=== PATIENT | female | born 1970 | race Caucasian/White ===

== ENCOUNTER → 2016-12-25 | Outpatient (CLI) | payer OTHER ==
--- NOTE | 2016-12-25 23:11 | MR ---
EXAMINATION TYPE: MR lumbar spine wo/w con DATE OF EXAM: 12/25/2016 5:34 PM COMPARISON: 12/30/2014 Contrast: 18 mL MultiHance HISTORY: Back pain TECHNIQUE: T1 and T2 axial and sagittal, postcontrast T1 sagittal and axial images of the lumbar spi ne are submitted. FINDINGS: There is no abnormal signal seen within the visualized spinal cord or paraspinal soft tissu es. Right upper pole renal cyst is identified. At T11-T12 there is moderate degenerative disc disease and sagittal disc bulging. No spinal cord cont act. Axial images do not include this region. This appears slightly progressed from the previous MRI thoracic spine dated 03/04/2015 At L1-2 there is no disc herniation, canal stenosis, or foraminal encroachment. At L2-3 there is degenerative disc disease and facet arthropathy. No foraminal encroachment. Annular tear now noted. No Canal stenosis. At L3-4 there is mild degenerative disc disease. There is facet arthropathy with no foraminal encroac hment or canal stenosis. At L4-5 there is progressive changes of facet arthropathy. There is now anterolisthesis grade 1 of L4 on L5 with mild bilateral foraminal encroachment. No Canal stenosis. At L5-S1 there is degenerative disc disease with annular tear no focal herniation. Facet arthropathy seen. Neural foramina patent. Previously noted synovial cyst on the right no longer identified. IMPRESSION: 1. Mild progression of degenerative disc disease and multilevel facet arthropathy with a grade 1 ante rolisthesis of L4 on L5 measuring approximately 3 to 4 mm. This results in mild bilateral foraminal e ncroachment. 2. Annular tear at L2-3 and L5-S1 with no focal herniation or canal stenosis
== END | disposition home or self-care (01) ==
LOC: RADMRIMAIN 16:52
PROVIDERS: ATTEND Psychiatry & Neurology Neurology
DX: M43.16 Spondylolisthesis, lumbar region (principal); M51.37 Other intervertebral disc degeneration, lumbosacral region; M46.96 Unspecified inflammatory spondylopathy, lumbar region
CPT/HCPCS: 72158; A9577

== ENCOUNTER → 2017-04-10 | Outpatient (CLI) | payer OTHER ==
--- NOTE | 2017-04-10 23:21 | MR ---
EXAMINATION TYPE: MR cervical spine wo con DATE OF EXAM: 04/10/2017 COMPARISON: 03/04/2015 HISTORY: Burning in neck to shoulders TECHNIQUE: Multiplanar, multisequence images of the cervical spine were acquired. The cervical vertebra show some straightening. There is some degenerative disc space narrowing at C5- 6. There is anterior and posterior disc herniation at C5-6 with some encroachment on the spinal canal . The canal measures 9 mm. There is developmentally large spinal canal. Brainstem appears normal. Cer vical spinal cord has normal signal pattern. There is no evidence of edema. Posterior elements are in tact. IMPRESSION: There is spondylosis at C5-6 with a posterior central and left-sided cervical disc herniation. No sig nificant narrowing of the spinal canal. There is overall no adverse change compared to last exam of .
== END | disposition home or self-care (01) ==
LOC: RADMRIMAIN 17:37
PROVIDERS: ATTEND Neurological Surgery
DX: M50.022 Cervical disc disorder at C5-C6 level with myelopathy (principal); M47.12 Other spondylosis with myelopathy, cervical region
CPT/HCPCS: 72141

== ENCOUNTER → 2018-04-09 | Outpatient (CLI) | payer OTHER ==
[2018-04-09 11:46] LABS: Appearance,Urine Clear (Clear); Bilirubin,Urine Negative (Negative); Blood,Urine Negative (Negative); Color,Urine Light Yellow; Glucose,Urine (UA) Negative (Negative); HCT 40.8 % (34.0-46.0); HGB 13.3 gm/dL (11.4-16.0); Ketones,Urine Negative (Negative); Leukocyte Esterase,Urine Negative (Negative); MCH 28.7 pg (25.0-35.0); MCHC 32.5 g/dL (31.0-37.0); MCV 88.2 fL (80.0-100.0); Mean Platelet Volume 6.6; Nitrite,Urine Negative (Negative); Platelet Count 341 k/uL (150-450); Protein,Urine Negative (Negative); RBC 4.63 m/uL (3.80-5.40); RDW 13.1 % (11.5-15.5); Specific Gravity,Urine 1.008 (1.001-1.035); Urobilinogen,Urine <2.0 mg/dL (<2.0); WBC 11.7 k/uL (3.8-10.6)
[2018-04-09 12:08] LABS: ALT 34 U/L (9-52); AST 24 U/L (14-36); Alkaline Phosphatase 71 U/L (38-126); Anion Gap 13 mmol/L; Blood Urea Nitrogen 12 mg/dL (7-17); C Reactive Protein 5.1 mg/L (<10.0); Calcium 9.4 mg/dL (8.4-10.2); Carbon Dioxide 28 mmol/L (22-30); Chloride 103 mmol/L (98-107); Creatine Kinase 61 U/L (30-135); Glucose 74 mg/dL (74-99); Magnesium 1.8 mg/dL (1.6-2.3); Potassium 3.8 mmol/L (3.5-5.1); Sodium 144 mmol/L (137-145); Total Bilirubin 0.2 mg/dL (0.2-1.3); Total Protein 6.8 g/dL (6.3-8.2)
[2018-04-09 13:08] LABS: Erythrocyte Sedimentation Rate 7 mm/hr (0-20)
[2018-04-09 18:22] LABS: Hemoglobin A1C 5.4 % (4.0-6.0)
[2018-04-11 05:39] LABS: Vitamin E (Alpha Tocopherol) 1790 ug/dL (500-1800)
[2018-04-11 05:50] LABS: Vitamin B1 60 ug/L (38-122)
== END | disposition home or self-care (01) ==
LOC: LABWHC1 10:51
PROVIDERS: ATTEND Psychiatry & Neurology Neurology
DX: M79.7 Fibromyalgia (principal); G89.4 Chronic pain syndrome; Z79.899 Other long term (current) drug therapy
CPT/HCPCS: 36415; 80053; 81003; 82306; 82550; 83036; 83519; 83735; 84207; 84425; 84446; 84590; 84591; 84597; 85027; 85652; 86140

== ENCOUNTER → 2018-04-18 | Outpatient (CLI) | payer OTHER ==
--- NOTE | 2018-04-19 00:51 | MR ---
EXAMINATION TYPE: MR lumbar spine wo con DATE OF EXAM: 04/18/2018 COMPARISON: 12/25/2016 HISTORY: Low back pain TECHNIQUE: Multiplanar, multisequence images of the lumbar spine were acquired. Lumbar vertebra have normal alignment. Posterior elements are intact. Disc spaces are fairly normal. The neural foramina are well-maintained. There is no compression fracture. Lumbar nerve roots appear normal. There is no evidence of spinal stenosis. There is no paraspinal mass. There is a 6 mm synovia l cyst on the anterior aspect of the L4-5 facet joint on the right side. There is slight encroachment on the lateral recess. I see no bony destructive process. IMPRESSION: No spinal stenosis or lumbar disc herniation. Small synovial cyst at L4-5 on the right side appears n ew compared to old exam. No spinal stenosis. No fracture.
--- NOTE | 2018-04-19 01:03 | MR ---
MRI CERVICAL SPINE and brain: CLINICAL HISTORY: Neck pain. Headaches. TECHNIQUE: Multiplanar, multisequence imaging of the cervical spine is performed without contrast. COMPARISON: Cervical spine 04/10/2017. Brain 11/29/2011. FINDINGS: The cervical vertebra have fairly normal alignment. There is slight narrowing at C5-6 disc space. There is posterior disc herniation at C5-6 into the spinal canal. Cervical spinal cord has rachelle rly normal signal pattern. There is no edema. Spinal canal measures 9 mm at C5-6. The other cervical discs appear intact. The brainstem appears normal. There are small anterior disc herniation also at C 5-6. There is no evidence of a fracture. Posterior elements are intact. I see no bony destructive pro cess. IMPRESSION: Anterior and posterior cervical disc herniation at C5-6 as above. This is stable compared to old exam of 04/10/2017. No spinal stenosis. MR scan of the brain. FINDINGS: The ventricles and sulci appear normal for age. There is no mass effect nor midline shift. There is n o sign of intracranial hemorrhage. There is mild mucosal thickening in the ethmoid air cells. There i s no hydrocephalus. Brainstem appears normal. Corpus callosum appears normal. Sella turcica is normal . There is no evidence of orbital mass. IMPRESSION: There is ethmoid sinusitis that is improved compared to old exam 11.29.11. Negative MR scan of the bra in.
== END ==
LOC: RADMRIMAIN 20:40
PROVIDERS: ATTEND Psychiatry & Neurology Neurology
DX: M50.222 Other cervical disc displacement at C5-C6 level (principal); J32.2 Chronic ethmoidal sinusitis; M71.38 Other bursal cyst, other site; Z88.5 Allergy status to narcotic agent; Z88.8 Allergy status to other drugs, medicaments and biological substances
CPT/HCPCS: 70551; 72141; 72148

== ENCOUNTER 2021-06-30 11:17 | Emergency (ER) | payer OTHER ==
[2021-06-30] MEDS ORDERED: ONDANSETRON 4 MG/2 ML VIAL IVP STA (11:58)
[2021-06-30] MEDS ORDERED: DICYCLOMINE 10 MG/ML 2 ML AMP IM STA (11:58)
[2021-06-30] MEDS ORDERED: SODIUM CHLORIDE 0.9% 1,000 ML IV STA (11:58)
[2021-06-30] MEDS ORDERED: KETOROLAC 15 MG/ML 1 ML VIAL IVP STA (11:58)
[2021-06-30] MEDS ORDERED: PANTOPRAZOLE 40 MG/10 ML VIAL IVP STA (11:59)
--- NOTE | 2021-06-30 12:34 | ED ---
Abdominal Pain HPI - General Chief Complaint: Abdominal Pain Stated Complaint: right side abd pain Time Seen by Provider: 06/30/21 11:40 Source: patient Mode of arrival: ambulatory Limitations: no limitations - History of Present Illness Initial Comments: 51-year-old female presenting to the emergency department with a chief complaint of abdominal pain. Patient reports the pain has persisted over the last 8 months but has been increasing in severity over the last 1 month. Patient reports pain is located in the right lower quadrant region without any radiation. Patient reports the pain feels sharp but does not appear to be postprandial. States it is worse with positional movements. Did have one episode of nausea and vomiting yesterday but not today. Does have history of constipation and takes laxatives. States she had an ultrasound which showed no signs of ovarian cyst. She denies any diarrhea, hematuria, hematochezia or melena. States she struck her menstrual period. Denies any vaginal discharge foul small or itching. Denies dysuria, increased urgency or frequency. Surgical history of cholecystectomy and appendectomy. - Related Data Allergies Allergy/AdvReac Type Severity Reaction Status Date / Time duloxetine [From Cymbalta] Allergy Unknown Verified 06/30/21 11:36 morphine Allergy Vomiting Verified 06/30/21 11:36 pregabalin [From Lyrica] Allergy Confusion Verified 06/30/21 11:36 Review of Systems ROS Statement: Those systems with pertinent positive or pertinent negative responses have been documented in the HPI. ROS Other: All systems not noted in ROS Statement are negative. Past Medical History Past Medical History: Hypertension History of Any Multi-Drug Resistant Organisms: None Reported Past Surgical History: Appendectomy, Section, Cholecystectomy Additional Past Surgical History / Comment(s): lithotripsy Past Psychological History: No Psychological Hx Reported Smoking Status: Never smoker Past Alcohol Use History: None Reported Past Drug Use History: None Reported General Exam Limitations: no limitations General appearance: alert, in no apparent distress Head exam: Present: atraumatic, normocephalic, normal inspection Eye exam: Present: normal appearance, PERRL, EOMI Pupils: Present: normal accommodation ENT exam: Present: normal exam, normal oropharynx, mucous membranes moist Neck exam: Present: normal inspection, full ROM. Absent: tenderness, lymphadenopathy Respiratory exam: Present: normal lung sounds bilaterally. Absent: respiratory distress Cardiovascular Exam: Present: regular rate, normal rhythm, normal heart sounds. Absent: systolic murmur GI/Abdominal exam: Present: soft, tenderness (Right lower quadrant tenderness). Absent: distended, guarding, rebound, rigid Extremities exam: Present: normal inspection, full ROM, normal capillary refill. Absent: tenderness Back exam: Present: normal inspection, full ROM. Absent: tenderness Neurological exam: Present: alert, oriented X3 Psychiatric exam: Present: normal affect, normal mood Skin exam: Present: warm, dry, intact, normal color Course Vital Signs 06/30/21 11:31 Temperature 98.7 F Pulse Rate 79 Respiratory 19 Rate Blood Pressure 164/99 O2 Sat by Pulse 98 Oximetry Medical Decision Making - Medical Decision Making 51-year-old female presenting to the emergency department with a chief complaint of abdominal pain. On physical examination, right lower quadrant tenderness. Laboratory work shows no acute findings. UA shows hematuria but the patient is currently on her menstrual period. CT of abdomen and pelvis obtained shows bilateral ovarian cyst measuring 2.3 cm each. Also possible leiomyomas. There is also a calculus in the right renal pelvis which measures about 1.3 cm. Patient was advised to follow-up with the primary care physician. Return para meters were thoroughly discussed with patient was understanding and agreeable. Case discussed with Dr. Cifuentes - Lab Data Result diagrams: 06/30/21 12:30 06/30/21 12:30 Lab Results 06/30/21 06/30/21 06/30/21 Range/Units 12:30 12:30 12:30 WBC 7.3 (3.8-10.6) k/uL RBC 4.29 (3.80-5.40) m/uL Hgb 11.7 (11.4-16.0) gm/dL Hct 34.9 (34.0-46.0) % MCV 81.3 (80.0-100.0) fL MCH 27.1 (25.0-35.0) pg MCHC 33.4 (31.0-37.0) g/dL RDW 14.1 (11.5-15.5) % Plt Count 380 (150-450) k/uL MPV 6.7 Neutrophils % 60 % Lymphocytes % 28 % Monocytes % 5 % Eosinophils % 3 % Basophils % 1 % Neutrophils # 4.4 (1.3-7.7) k/uL Lymphocytes # 2.0 (1.0-4.8) k/uL Monocytes # 0.4 (0-1.0) k/uL Eosinophils # 0.2 (0-0.7) k/uL Basophils # 0.1 (0-0.2) k/uL Sodium (137-145) mmol/L Potassium (3.5-5.1) mmol/L Chloride (98-107) mmol/L Carbon Dioxide (22-30) mmol/L Anion Gap mmol/L BUN (7-17) mg/dL Creatinine (0.52-1.04) mg/dL Est GFR (CKD-EPI)AfAm (>60 ml/min/1.73 sqM) Est GFR (CKD-EPI)NonAf (>60 ml/min/1.73 sqM) Glucose (74-99) mg/dL Calcium (8.4-10.2) mg/dL Total Bilirubin (0.2-1.3) mg/dL AST (14-36) U/L ALT (4-34) U/L Alkaline Phosphatase (38-126) U/L Total Protein (6.3-8.2) g/dL Albumin (3.5-5.0) g/dL Lipase (23-300) U/L Urine Color Yellow Urine Appearance Cloudy H (Clear) Urine pH 6.5 (5.0-8.0) Ur Specific [place] 1.015 (1.001-1.035) Urine Protein Trace H (Negative) Urine Glucose (UA) Negative (Negative) Urine Ketones Negative (Negative) Urine Blood Large H (Negative) Urine Nitrite Negative (Negative) Urine Bilirubin Negative (Negative) Urine Urobilinogen <2.0 (<2.0) mg/dL Ur Leukocyte Esterase Trace H (Negative) Urine RBC 6 H (0-5) /hpf Urine WBC 8 H (0-5) /hpf Ur Squamous Epith Cells 3 (0-4) /hpf Urine Bacteria Rare H (None) /hpf Urine Mucus Rare H (None) /hpf Urine HCG, Qual Not Detected (Not Detectd) 06/30/21 Range/Units 12:30 WBC (3.8-10.6) k/uL RBC (3.80-5.40) m/uL Hgb (11.4-16.0) gm/dL Hct (34.0-46.0) % MCV (80.0-100.0) fL MCH (25.0-35.0) pg MCHC (31.0-37.0) g/dL RDW (11.5-15.5) % Plt Count (150-450) k/uL MPV Neutrophils % % Lymphocytes % % Monocytes % % Eosinophils % % Basophils % % Neutrophils # (1.3-7.7) k/uL Lymphocytes # (1.0-4.8) k/uL Monocytes # (0-1.0) k/uL Eosinophils # (0-0.7) k/uL Basophils # (0-0.2) k/uL Sodium 140 (137-145) mmol/L Potassium 3.9 (3.5-5.1) mmol/L Chloride 109 H (98-107) mmol/L Carbon Dioxide 25 (22-30) mmol/L Anion Gap 6 mmol/L BUN 14 (7-17) mg/dL Creatinine 1.02 (0.52-1.04) mg/dL Est GFR (CKD-EPI)AfAm 75 (>60 ml/min/1.73 sqM) Est GFR (CKD-EPI)NonAf 65 (>60 ml/min/1.73 sqM) Glucose 85 (74-99) mg/dL Calcium 8.8 (8.4-10.2) mg/dL Total Bilirubin 0.2 (0.2-1.3) mg/dL AST 25 (14-36) U/L ALT 15 (4-34) U/L Alkaline Phosphatase 80 (38-126) U/L Total Protein 6.3 (6.3-8.2) g/dL Albumin 3.6 (3.5-5.0) g/dL Lipase 87 (23-300) U/L Urine Color Urine Appearance (Clear) Urine pH (5.0-8.0) Ur Specific [place] (1.001-1.035) Urine Protein (Negative) Urine Glucose (UA) (Negative) Urine Ketones (Negative) Urine Blood (Negative) Urine Nitrite (Negative) Urine Bilirubin (Negative) Urine Urobilinogen (<2.0) mg/dL Ur Leukocyte Esterase (Negative) Urine RBC (0-5) /hpf Urine WBC (0-5) /hpf Ur Squamous Epith Cells (0-4) /hpf Urine Bacteria (None) /hpf Urine Mucus (None) /hpf Urine HCG, Qual (Not Detectd) Disposition Clinical Impression: Ovarian cyst, bilateral, Abdominal pain Disposition: HOME SELF-CARE Condition: Stable Instructions (If sedation given, give patient instructions): Abdominal Pain (ED) Additional Instructions: Please return to the Emergency Department if symptoms worsen or any other concerns. Is patient prescribed a controlled substance at d/c from ED?: No Referrals: Cody Beckman MD [Primary Care Provider] - 1-2 days Time of Disposition: 14:31
[2021-06-30 12:42] LABS: Basophils # (A) 0.1 k/uL (0-0.2); Basophils % (A) 1 %; Eosinophils # (A) 0.2 k/uL (0-0.7); Eosinophils % (A) 3 %; HCT 34.9 % (34.0-46.0); HGB 11.7 gm/dL (11.4-16.0); Lymphocytes % (A) 28 %; MCH 27.1 pg (25.0-35.0); MCHC 33.4 g/dL (31.0-37.0); MCV 81.3 fL (80.0-100.0); Mean Platelet Volume 6.7; Monocytes # (A) 0.4 k/uL (0-1.0); Monocytes % (A) 5 %; Neutrophils # (A) 4.4 k/uL (1.3-7.7); Neutrophils % (A) 60 %; Platelet Count 380 k/uL (150-450); RBC 4.29 m/uL (3.80-5.40); RDW 14.1 % (11.5-15.5); WBC 7.3 k/uL (3.8-10.6)
[2021-06-30 12:56] LABS: Albumin 3.6 g/dL (3.5-5.0); Calcium 8.8 mg/dL (8.4-10.2); Potassium 3.9 mmol/L (3.5-5.1); Total Bilirubin 0.2 mg/dL (0.2-1.3); Total Protein 6.3 g/dL (6.3-8.2)
[2021-06-30 13:00] LABS: Appearance,Urine Cloudy (Clear); Bacteria,Urine Rare /hpf; Bilirubin,Urine Negative (Negative); Blood,Urine Large (Negative); Color,Urine Yellow; Glucose,Urine (UA) Negative (Negative); Ketones,Urine Negative (Negative); Leukocyte Esterase,Urine Trace (Negative); Mucus,Urine Rare /hpf; Nitrite,Urine Negative (Negative); PH, Urine 6.5 (5.0-8.0); Protein,Urine Trace (Negative); RBC,Urine 6 /hpf (0-5); Specific Gravity,Urine 1.015 (1.001-1.035); Squamous Epithelial Cell,Urine 3 /hpf (0-4); Urobilinogen,Urine <2.0 mg/dL (<2.0); WBC,Urine 8 /hpf (0-5)
--- NOTE | 2021-06-30 13:48 | CT ---
EXAMINATION TYPE: CT abdomen pelvis w con DATE OF EXAM: 06/30/2021 COMPARISON: Right lower quadrant tenderness HISTORY: Abdominal pain. Nausea and vomiting. CT DLP: 1406 mGycm CONTRAST: CT scan of the abdomen and pelvis is performed without Oral Contrast and with IV Contrast, patient in jected with 100 mL of Isovue 300. FINDINGS: LUNG BASES-: No visible nodule. No infiltrate. LIVER/GB: No calcified gallstones. No space occupying hepatic lesion. Biliary tree is of normal ca liber. PANCREAS: No inflammation. No distinct mass. SPLEEN: No splenic enlargement. No lesion seen. ADRENALS: No nodule. No thickening. KIDNEYS/BLADDER: Calculus in the region of the right renal pelvis measures 1.3 cm. Only mild fullness of the right renal collecting system is identified. No additional calculi are seen at this time. No distinct renal mass. Urinary bladder grossly unremarkable. BOWEL: Nonvisualization of the appendix. No inflammatory process is identified in the region of the r ight lower quadrant. Normal bowel caliber. No inflammation. GENITAL ORGANS: Bilateral ovarian cysts noted measuring 2.3 cm on the left and 2.3 cm on the right. S uspect uterine leiomyomas. LYMPH NODES: No greater than 1cm abdominal or pelvic lymph nodes are appreciated. AORTA: No significant abnormality. OSSEOUS STRUCTURES: No significant abnormality is seen. OTHER: No significant additional abnormality is seen. IMPRESSION: 1. Nonvisualization of the appendix. No inflammatory process is identified in the region of the right lower quadrant. 2.Calculus in the region of the right renal pelvis measures 1.3 cm. Only mild fullness of the right r enal collecting system is identified. 3. Bilateral ovarian cysts as noted.
[2021-06-30 14:55] VITALS: BP 122/72; PULSE 72; RESP 17; TEMP 98
== END 2021-06-30 14:58 | disposition home or self-care (01) ==
LOC: EC 11:17
DX: N83.201 Unspecified ovarian cyst, right side (principal); N83.202 Unspecified ovarian cyst, left side; I10 Essential (primary) hypertension
CPT/HCPCS: 36415; 80053; 83690; 85025; 81001; 81025; 74177; 99284; 96374; 96375 ×2; 96361 ×2; 96372; J0500; J2405; J1885; C9113; Q9967

== ENCOUNTER 2021-07-14 08:36 | Day surgery (SDC) | payer OTHER ==
[2021-07-07 14:33] VITALS: BMI 32.4
--- NOTE | 2021-07-13 22:03 | P.HPIHPCON ---
History of Present Illness H&P Date: 07/20/21 Chief Complaint: right sided renal stone This is a 51 yo female with hx of 1.3 cm right sided renal stone. She is symptomatic from her stone. Discussed with her the option of doing ESWL and ureteroscopy. She agreed to proceed with right sided ureteroscopy with holmium laser. Discussed the risk of bleeding, infection and injury to the ureter. Discussed also with her risk from anesthesia. She understood all risks and agreed to proceed with right sided ureteroscopy with holmium laser lithotripsy, stone basketting and stent insertion. Consent for Procedure: I have explained the operation/procedure to the patient, including the risks, benefits, side effects, alternative therapies (including not receiving the proposed treatment or service), the likelihood of the patient achieving his/her goals, and potential recuperation problems for the procedure/sedation/analgesia, as well as any blood products, if indicated. I also explained to the patient the risks, benefits and side effects of the alternatives, as well as the risks related to not receiving the proposed procedure, care, treatment, or services. Past Medical History Past Medical History: GERD/Reflux, Hypertension, Musculoskeletal Disorder Additional Past Medical History / Comment(s): Right kidney stone. Hx kidney stones. "Ascending Aortic Aneurysym (4.1)". Degenerative Disc Disease. History of Any Multi-Drug Resistant Organisms: None Reported Past Surgical History: Appendectomy, Section, Cholecystectomy, Ear Surgery, Tubal Ligation, Uterine Ablation Additional Past Surgical History / Comment(s): Cearean Section X2. Lithotripsy. "Tubes clamped"(Tubal Ligation). Left ear surgery X5. Past Anesthesia/Blood Transfusion Reactions: No Reported Reaction Past Psychological History: Anxiety, Depression Smoking Status: Never smoker Past Alcohol Use History: None Reported Past Drug Use History: None Reported - Past Family History Mother Family Medical History: Cancer Additional Family Medical History / Comment(s): Skin cancer. Medications and Allergies Home Medications Medication Instructions Recorded Confirmed Type Baclofen [Lioresal] 20 mg PO HS 07/07/21 07/07/21 History Famotidine [Pepcid AC] 10 mg PO BID 07/07/21 07/07/21 History Orphenadrine [Norflex] 150 mg PO DAILY PRN 07/07/21 07/07/21 History Steroid Cream (Unknown Name) 1 applic TOPICAL QID PRN 07/07/21 07/07/21 History diphenhydrAMINE [Benadryl] 50 mg PO HS 07/07/21 07/07/21 History hydrOXYzine pamoate [Vistaril] 100 mg PO TID 07/07/21 07/07/21 History traMADol HCL 50 mg PO DIRECTED PRN 07/07/21 07/07/21 History traMADol HCL [traMADol HCL ER] 200 mg PO HS 07/07/21 07/07/21 History Allergies Allergy/AdvReac Type Severity Reaction Status Date / Time duloxetine [From Cymbalta] Allergy Unknown Verified 07/07/21 14:13 morphine Allergy Vomiting Verified 07/07/21 14:13 pregabalin [From Lyrica] Allergy Confusion Verified 07/07/21 14:13 Surgical - Exam - General no distress, moderate pain - Eyes PERRL, normal ocular movement - ENT normal nares, normal mucosa - Respiratory normal expansion, normal respiratory effort - Psychiatric oriented to time, oriented to person, oriented to place Assessment and Plan Assessment: OR for right sided ureteroscopy with holmium laser lithotripsy, stone basketting and stent insertion
[~2021-07-14 08:36] MED LIST: DEXAMETHASONE SOD PHOSPHATE 4 MG/ML 1 ML VIAL IV ONE; LACTATED RINGERS 1,000 ML IV SCH; ONDANSETRON 4 MG/2 ML VIAL IVP ONE
--- NOTE | 2021-07-14 09:05 | XR ---
EXAMINATION TYPE: XR KUB DATE OF EXAM: 07/14/2021 Comparison: 06/30/2021 CT Clinical History: 51-year-old female Right Renal Calculi Findings: There is a 1.4 cm calculus right mid abdomen. Bilateral tubal ligation clips. 2 on each side. Numerou s pelvic phlebolith. Nonobstructive bowel gas pattern. Impression: 1.4 cm right-sided renal calculus. Numerous pelvic phleboliths.
[2021-07-14] MEDS ORDERED: LIDOCAINE 1% (10MG/ML) FOR IV START INTRADERMA ONE (09:41)
[2021-07-14] MEDS ORDERED: SCOPOLAMINE 1.5MG/72HR PATCH TRANSDERM ONE (09:45)
[2021-07-14] MEDS ORDERED: LIDOCAINE 1% INJ 10MG/ML (20 ML MDV) ONE (09:50)
[2021-07-14] MEDS ORDERED: SUCCINYLCHOLINE CHLORIDE 100 MG/5 ML SYR IV ONE (09:50)
[2021-07-14] MEDS ORDERED: PROPOFOL 10 MG/ML 20 ML VIAL IV ONE (09:50)
[2021-07-14] MEDS ORDERED: fentaNYL (PF) 50 MCG/ML 2 ML AMP ONE (09:50)
[2021-07-14] MEDS ORDERED: MIDAZOLAM 2 MG/2 ML VIAL ONE (09:50)
[2021-07-14] MEDS ORDERED: IOHEXOL 350 MG/ML 50 ML in EMPTY BAG 1 BAG IRRIGATION ONE (10:23)
--- NOTE | 2021-07-14 11:24 | P.OP ---
Date of Procedure: 07/14/21 Preoperative Diagnosis: Right renal calculi Postoperative Diagnosis: Same Procedure(s) Performed: Cystoscopy, right ureteroscopy, holmium laser lithotripsy, stone basketing and stent insertion Implants: 6-Kittitian by 24 cm stent Anesthesia: PATO Surgeon: Sabas Fam Estimated Blood Loss (ml): 5 Pathology: other (right renal stones) Condition: stable Disposition: PACU Indications for Procedure: This is a 51 yo female with hx of 1.3 cm right sided renal stone. She is symptomatic from her stone. Discussed with her the option of doing ESWL and ureteroscopy. She agreed to proceed with right sided ureteroscopy with holmium laser. Discussed the risk of bleeding, infection and injury to the ureter. Discussed also with her risk from anesthesia. She understood all risks and agreed to proceed with right sided ureteroscopy with holmium laser lithotripsy, stone basketting and stent insertion. Operative Findings: Large right-sided renal stone Description of Procedure: Patient was brought to the operating room, general anesthesia was induced. She was prepped and draped in sterile fashion and placed in dorsal lithotomy position. A cystoscopy fitted with a 21-Kittitian sheath was inserted per urethra, cystoscopy showed no abnormality within the bladder. Attention was then carried to the right ureteral orifice which was intubated with a sensor wire. The sensor wire was advanced into the renal pelvis under fluoroscopy. Next a 1214 Kitt[place] access sheath was passed over the wire under fluoroscopy into the proximal ureter. The flexible ureteroscope was inserted through the access sheath, renoscopy was performed which showed a large stone within the renal pelvis. Using the holmium laser the stone was fragmented into small fragments, sizable fragments were removed and sent to pathology. Repeat renoscopy showed no evidence of sizable fragments or injury to the kidney. Pullback ureteroscopy was performed which showed no injury to the ureter or any ureteral fragments. As the ureteroscope was withdrawn a sensor wire was advanced through. Next a ureteral stent was passed over the wire, the proximal curl was visualized on fluoroscopy and the distal curl was visualized using the cystoscope. The bladder was emptied at the end of the case. Patient tolerated the procedure well was taken to PACU in stable condition
[2021-07-14 11:31] VITALS: RESP 16; TEMP 96.8
[2021-07-14] MEDS: HYDROmorphone 0.5 MG/0.5 ML SYRINGE IVP PRN ×3 (12:03→12:36)
[2021-07-14] MEDS: LABETALOL SYRINGE 5 MG/ML IVP ONE ×2 (12:24→12:44)
[2021-07-14] MEDS ORDERED: hydrALAZINE HCL 20 MG/ML 1 ML VIAL IVP ONE (13:05)
[2021-07-14] MEDS ORDERED: IBUPROFEN 200 MG TAB PO ONE (13:14)
[2021-07-14 13:51] VITALS: BP 154/78; PULSE 88
--- NOTE | 2021-07-14 15:41 | FL ---
EXAMINATION TYPE: FL guidance operating room DATE OF EXAM: 07/14/2021 FLUOROSCOPY Fluoroscopy time of 18 seconds was used during right-sided kidney stone intervention. 6 image/s docu ment/s the procedure.
== END 2021-07-14 13:44 | disposition home or self-care (01) ==
LOC: OR 08:36
PROVIDERS: ATTEND Urology
DX: N20.0 Calculus of kidney (principal); K21.9 Gastro-esophageal reflux disease without esophagitis; I10 Essential (primary) hypertension; F41.8 Other specified anxiety disorders; Z82.0 Family history of epilepsy and other diseases of the nervous system
CPT/HCPCS: 52356; 81025; 82365; 74018; C2625; C1894; C1769; J2250; J0360; J1100; J0690; J2405; J2001; J3010; J0330; J2704; Q9967; J1170; 74420

== ENCOUNTER → 2021-08-25 | Outpatient (CLI) | payer OTHER ==
--- NOTE | 2021-08-25 16:46 | XR ---
EXAMINATION TYPE: XR KUB DATE OF EXAM: 08/25/2021 Comparison: 07/14/2021 Clinical History: 51-year-old female N20.1 calculus of URETER Findings: Nonobstructive bowel gas pattern. There are bilateral tubal ligation clips, 2 on either side. Numerou s pelvic phleboliths. The previous 1.4 cm right renal calculus is no longer well seen. Moderate stool within the right side of the abdomen. Cholecystectomy clips. Impression: The previous right renal calculus is no longer seen. Numerous pelvic phleboliths redemonstrated.
== END | disposition home or self-care (01) ==
LOC: RADXRMAIN 12:25
PROVIDERS: ATTEND Urology
DX: N20.1 Calculus of ureter (principal)
CPT/HCPCS: 74018

== ENCOUNTER → 2022-04-19 | Outpatient (CLI) | payer OTHER | END | disposition home or self-care (01) | LOC: LABWHC1 08:29 | PROVIDERS: ATTEND Psychiatry & Neurology Pain Medicine | DX: R41.82 Altered mental status, unspecified (principal) | CPT/HCPCS: 36415; 82550; 84520 ==

== ENCOUNTER → 2022-04-20 | Outpatient (CLI) | payer OTHER ==
--- NOTE | 2022-04-20 16:28 | MR ---
EXAMINATION TYPE: MR cspine/lspine wo con DATE OF EXAM: 04/20/2022 COMPARISON: Cervical spine MRI 04/18/2018, lumbar spine MRI dated 04/18/2018 HISTORY: Neck/low back pain TECHNIQUE: Multiplanar, multisequence imaging of the cervical and lumbar spine is performed without I V contrast. FINDINGS: Cervical spine MRI: Spondylolysis at C5-6 is again noted, there is loss of disc signal at C5-6, there is endplate discogenic marrow signal change similar to prior exam. Spinal curvature is noted inciden tally. Cervical vertebral bodies show preserved height, similar alignment, minimal anterolisthesis gr eliana 145 noted, there is a kyphosis centered at C5-6. Cervical cord signal is maintained. There is no significant spinal stenosis. C2-3: No evident foraminal encroachment or disc herniation. C3-4: No significant disc herniation or foraminal encroachment. C4-5: Uncovertebral joint hypertrophy, facet arthropathy results in some left-sided foraminal encroac hment similar to prior. No evident disc herniation C5-6: Posterior extension endplate disc complex causes anterior mass effect thecal sac. There is bila teral foraminal encroachment left greater than right. C6-7: No significant foraminal encroachment no evident disc herniation C7-T1 is unremarkable IMPRESSION: Degenerative disc disease, foraminal encroachment similar to prior exam. There is a spina l curvature extending from the cervical into the thoracic spine region. Lumbar spine MRI: Lumbar vertebral bodies show preserved height. Minimal retrolisthesis grade 1 L1 to, there is associa nika loss of disc height signal, endplate discogenic marrow signal change has developed, there is like ly Schmorl's node formation. No significant spinal stenosis. Minimal anterolisthesis grade 1 L4-5. So me loss of disc height signal is also present at L2-3 similar to prior exam. The conus is at T12-L1 s hows an unremarkable appearance. L5-S1: There is facet arthropathy change present. No evident disc herniation or significant foraminal encroachment. L4-5: There is no evident disc herniation. Facet arthropathy changes present. No significant foramina l encroachment. L3-4: No evident disc herniation. No significant foraminal encroachment. L2-3: No evident disc herniation or foraminal encroachment L1-2: There is posterior extension endplate disc complex causing some anterior mass effect on the the jamey sac. Differential extension endplate disc complex encroaches somewhat on the neural foramen great er on the left. IMPRESSION: There is been some progression in patient's degenerative disc disease as described. There is facet arthropathy. No significant spinal stenosis.
--- NOTE | 2022-04-20 16:38 | MR ---
EXAMINATION TYPE: MR brain wo/w con DATE OF EXAM: 04/20/2022 COMPARISON: MRI brain April 18, 2018 HISTORY: AMS TECHNIQUE: Multiplanar, multisequence images of the brain and brainstem is performed without and with IV contras t, utilizing 10 mL intravenous Gadavist . FINDINGS: Diffusion weighted images demonstrate no evidence of a recent infarct or other diffusion ab normality. The ventricular system and cisternal spaces are normal in size and appearance. The brain volume is age appropriate. Few small scattered foci of T2 hyperintensity are redemonstrated throughou t the white matter bilaterally. Slight interval progression in number of lesions from prior. Approximately 10-15 small scattered lesi ons are seen. Lesions are nonspecific in appearance and distribution. Midline structures demonstrate normal morphology. The craniocervical junction appears within normal limits. Post contrast images demonstrate no abnormal enhancement. The dural venous sinuses appear pa tent. Stable mild bilateral anterior ethmoid sinus mucosal thickening. Increased fluid signal right g reater than left mastoid air cells redemonstrated. T2 Star weighted images show no suspicious intrapa renchymal blood products. IMPRESSION: Mild nonspecific white matter changes with some interval progression from 2018 MRI. No ab normal enhancement. Possible right-sided mastoiditis versus retained secretions, correlate clinically .
== END | disposition home or self-care (01) ==
LOC: RADMRIMAIN 15:00
PROVIDERS: ATTEND Psychiatry & Neurology Neurology
DX: M51.36 Other intervertebral disc degeneration, lumbar region (principal); M50.323 Other cervical disc degeneration at C6-C7 level; M47.816 Spondylosis without myelopathy or radiculopathy, lumbar region; M99.71 Connective tissue and disc stenosis of intervertebral foramina of cervical region; G93.89 Other specified disorders of brain
CPT/HCPCS: 70553; 72141; 72148; A9585

== ENCOUNTER → 2023-06-06 | Outpatient (CLI) | payer OTHER ==
--- NOTE | 2023-06-08 10:38 | MR ---
EXAMINATION TYPE: MR brain/lspine wo con DATE OF EXAM: 06/06/2023 8:13 PM COMPARISON: 04/20/2022. CLINICAL INDICATION:Female, 53 years old with history of I63.9; PHH, Dizziness, Pain low back into le gs TECHNIQUE: Multi planar, multi sequence imaging was performed through the brain including: T1, T2, In version recovery, Diffusion weighted imaging, and gradient echo imaging. No gadolinium was given. TECHNIQUE: Multi planar, multi sequence imaging was performed utilizing: T1-weighted, T2-weighted, a nd turbo inversion recovery imaging of the lumbar spine. IV Contrast: None. FINDINGS: Brain: The clarke-white junctions, ventricular system, and cisterns appear unremarkable. Scattered foci of hi gh T2 signal intensity are seen within the periventricular white matter. Midline structures show no a bnormality. Diffusion-weighted imaging shows no evidence of restricted diffusion. The susceptibility weighted images do not reveal any evidence for micro-hemorrhage. The bone marrow signal is within normal limits. Paranasal sinuses and mastoid air cells: Bilateral mastoid air cell effusions right greater than left . Visualized orbits: Orbital contents are intact. L Spine: Alignment: The lumbar vertebral bodies have preserved heights with grade 1 anterolisthesis of L4 on L 5. Scoliosis changes also present. Cord: The conus medullaris and the distal spinal cord appear unremarkable with regards to their signa l intensity and morphology. Bones/Discs: No abnormal bony edema on inversion recovery sequences. Scattered disc space narrowing, disc desiccation osteophytes and facet joint arthropathy. T12-L1: No evidence of significant spinal canal stenosis or neural foraminal stenosis. L1-L2: No evidence of significant spinal canal stenosis or neural foraminal stenosis. L2-L3: Disc bulge and facet joint arthropathy result in mild spinal canal and mild to moderate bilate ral neural foraminal stenosis. L3-L4: Disc bulge and facet joint arthropathy result in mild spinal canal and mild to moderate bilate ral neural foraminal stenosis. L4-L5: Disc uncovering from grade 1 anterolisthesis and facet joint arthropathy with mild spinal milton l stenosis and mild to moderate bilateral neural foraminal stenosis. L5-S1: The disc is rounded posterior morphology without significant spinal canal stenosis. Facet join t arthropathy with mild neural foraminal stenosis. No significant spinal canal or neural foraminal stenosis in the remainder of the visualized levels. Other findings: None. IMPRESSION: Overall findings not significantly changed from priors. 1. No definitive evidence of disc herniation or significant spinal canal or neural foraminal stenosi s. 2. Multilevel disc degeneration with associated osteoarthritic changes. 3. No evidence of intracranial mass or acute/subacute infarct. 4. Nonspecific white matter changes, likely secondary to small vessel ischemic disease. 5. Bilateral mastoid air cell effusions, right greater than left. Similar to prior.
--- NOTE | 2023-06-08 10:39 | MR ---
EXAMINATION TYPE: MR angio neck wo/w con DATE OF EXAM: 06/06/2023 8:15 PM CLINICAL INDICATION:Female, 53 years old with history of I63.9; Evaluate for aneurysm, pain in spine COMPARISON: Prior 04/20/2022. TECHNIQUE: Multiplanar, multi-sequence imaging as well as [id number] and phase contrast imaging w as performed extracranial vasculature of the neck. 2-D and 3-D [id number] imaging. 3-D reformatte d images and maximum intensity projection reformatted images were submitted for evaluation. IV Contrast: 7.5 cc Gadavist FINDINGS: RIGHT CAROTID SYSTEM: The common carotid artery is patent. The carotid bifurcations that she no evide nce for hemodynamically significant stenosis. The internal carotid arteries patent. LEFT CAROTID SYSTEM: The common carotid artery is patent. The carotid bifurcations that she no evide nce for hemodynamically significant stenosis. The internal carotid arteries patent. The origins of the great vessels and vertebral arteries appear unremarkable. The right vertebral art bud is dominant. IMPRESSIONS: 1. No evidence of significant stenosis at the carotid bifurcations. The carotid and vertebral arterie s are patent. 2. No evidence aneurysm.
== END | disposition home or self-care (01) ==
LOC: RADMRIMAIN 18:01
PROVIDERS: ATTEND Psychiatry & Neurology Neurology
DX: M51.36 Other intervertebral disc degeneration, lumbar region (principal); I67.1 Cerebral aneurysm, nonruptured; I63.9 Cerebral infarction, unspecified; H74.8X3 Other specified disorders of middle ear and mastoid, bilateral; I74.9 Embolism and thrombosis of unspecified artery; G82.20 Paraplegia, unspecified; R42 Dizziness and giddiness; R29.6 Repeated falls
CPT/HCPCS: 70549; 70551; 72148; A9585

== ENCOUNTER → 2023-06-06 | Outpatient (CLI) | payer OTHER | END | disposition home or self-care (01) | LOC: RADMRIMAIN 18:46 | PROVIDERS: ATTEND Psychiatry & Neurology Neurology | DX: Z53.9 Procedure and treatment not carried out, unspecified reason (principal) ==

== ENCOUNTER → 2024-01-10 | Outpatient (CLI) | payer OTHER ==
--- NOTE | 2024-01-10 14:54 | MR ---
EXAMINATION TYPE: MR pituitary wo/w con DATE OF EXAM: 01/10/2024 1:20 PM COMPARISON: NONE HISTORY: Prior brain on synapse, dizziness, hearing loss, aneurysm CONTRAST: Patient received 7.5 mL intravenous Gadavist gadolinium contrast. Multiplanar MultiSpin echo imaging of the pituitary fossa was performed. Unenhanced followed by cont rast enhanced images are submitted. The unenhanced portion of the study fails to demonstrate evidence for hyperintense pituitary lesion. The pituitary gland is of normal size and measures 1 cm x 0.6 cm. Following contrast administration there is no evidence for filling defect to suggest microadenoma. Pituitary stalk is midline. Supra sellar cistern is unremarkable without evidence for mass. Optic chiasm has a normal appearance. Cav ernous sinus including the carotid vessels appear to be within normal limits. Chronic appearing Right-sided mastoiditis IMPRESSION: 1. No evidence for pituitary micro or macroadenoma.
== END | disposition home or self-care (01) ==
LOC: RADMRIMAIN 12:04
PROVIDERS: ATTEND Psychiatry & Neurology Neurology
DX: R90.82 White matter disease, unspecified (principal); E23.0 Hypopituitarism
CPT/HCPCS: 70553; A9585

== ENCOUNTER → 2024-06-03 | Outpatient (CLI) | payer OTHER ==
--- NOTE | 2024-06-04 17:58 | MR ---
EXAMINATION TYPE: MR cervical spine wo con DATE OF EXAM: 06/03/2024 10:33 PM CLINICAL INDICATION:Female, 54 years old with history of M5412, m542; PHH, Neck pain. COMPARISON: None. TECHNIQUE: Multi planar, multi sequence imaging was performed utilizing: T1-weighted, T2-weighted, an d turbo inversion recovery imaging of the cervical spine. IV Contrast: cc (none if empty) FINDINGS: Alignment: The cervical vertebral bodies have preserved heights. Grade 1 anterolisthesis of C3 on C4 and C4 on C5. Bones: Osteophytes and disc space narrowing most pronounced at the C5-C7 vertebral levels. Cord: The spinal cord is unremarkable with regards to their signal intensity and morphology. Discs: Intervertebral disc signal is maintained. C2-C3: No significant disc pathology. The spinal canal is patent. No neural foraminal stenosis. C3-C4: No significant disc pathology. The spinal canal is patent. Bilateral facet and uncovertebral joint arthropathy are present with mild left neural foraminal stenosis. The right neural foramen is p atent. C4-C5: No significant disc pathology. The spinal canal is patent. Bilateral facet and uncovertebral joint arthropathy are present with mild bilateral neural foraminal stenosis. C5-C6: No significant disc pathology. The spinal canal is patent. Bilateral facet and uncovertebral joint arthropathy are present with severe left and moderate right neural foraminal stenosis. C6-C7: No significant disc pathology. The spinal canal is patent. No neural foraminal stenosis. C7-T1: No significant disc pathology. The spinal canal is patent. No neural foraminal stenosis. Other: None. IMPRESSION: 1. No evidence for disc herniation or significant spinal canal stenosis. 2. Moderate disc degeneration with associated osteoarthritic changes at C5-C6 with severe left and mo derate right neural foraminal stenosis.. 3. Grade 1 anterolisthesis of C3 on C4 and C4 on C5.
== END | disposition home or self-care (01) ==
LOC: RADMRIMAIN 21:45
PROVIDERS: ATTEND Surgery
DX: M50.322 Other cervical disc degeneration at C5-C6 level (principal); M48.02 Spinal stenosis, cervical region; M43.12 Spondylolisthesis, cervical region
CPT/HCPCS: 72141

== ENCOUNTER 2024-09-27 14:40 | Inpatient (IN) | payer OTHER ==
--- NOTE | 2024-09-27 14:54 | ED ---
Abdominal Pain HPI - General Chief Complaint: Abdominal Pain Stated Complaint: Abd Pain Time Seen by Provider: 09/27/24 14:48 Source: patient, EMS, RN notes reviewed, old records reviewed Mode of arrival: EMS Limitations: no limitations - History of Present Illness Initial Comments: 44-year-old female presents emergency department as a transfer from [facility] chief complaint of partial small bowel obstruction. Patient states she had vomiting for 14 hours prior to present to the ER there. Patient states she does feel slightly bloated and has mild diffuse abdominal comfort. Patient's had prior cholecystectomy over 10 years ago does not see a current surgeon. Patient states she did have a bowel movement 2 days ago. Patient states she did have some improvement of her nausea and discomfort after meds but states symptoms are returning. Patient states she is still passing gas. Patient states she does feel very gassy, distended. - Related Data Home Medications Medication Instructions Recorded Confirmed Orphenadrine [Norflex] 100 mg PO DAILY PRN 07/07/21 09/27/24 Pantoprazole [Protonix] 40 mg PO HS 07/14/21 09/27/24 Atogepant [Qulipta] 60 mg PO HS 09/27/24 09/27/24 Atorvastatin [Lipitor] 40 mg PO HS 09/27/24 09/27/24 Azelastine HCl [Astelin Nasal 2 spr EA NOSTRIL HS 09/27/24 09/27/24 [place]] Butalb/APAP/Caff 50-325-40Mg 1 tab PO Q4H PRN 09/27/24 09/27/24 [Fioricet 50-325-40] Ergocalciferol [Vitamin D2 (1250 1,250 mcg PO ARBOLEDA 09/27/24 09/27/24 Mcg = 82272 Iu)] Famotidine 40 mg PO DAILY PRN 09/27/24 09/27/24 Famotidine 40 mg PO HS 09/27/24 09/27/24 Ketorolac [Toradol] 10 mg PO BID PRN 09/27/24 09/27/24 Lubiprostone [Amitiza] 24 mcg PO DAILY PRN 09/27/24 09/27/24 Lubiprostone [Amitiza] 24 mcg PO HS 09/27/24 09/27/24 NIFEdipine XL [Procardia XL] 60 mg PO HS 09/27/24 09/27/24 Naloxegol Oxalate [Movantik] 25 mg PO HS 09/27/24 09/27/24 Nortriptyline HCl [Pamelor] 150 mg PO HS 09/27/24 09/27/24 Orphenadrine [Norflex] 100 mg PO HS 09/27/24 09/27/24 Oxybutynin ER [Ditropan XL] 10 mg PO HS 09/27/24 09/27/24 Potassium Chloride ER [K-Dur 10] 10 meq PO DAILY 09/27/24 09/27/24 QUEtiapine [SEROquel] 200 mg PO HS 09/27/24 09/27/24 Triamcinolone 0.1% Cream [Kenalog 1 applic TOPICAL BID PRN 09/27/24 09/27/24 0.1% Cream] diazePAM [Valium] 5 mg PO DAILY PRN 09/27/24 09/27/24 diazePAM [Valium] 5 mg PO HS 09/27/24 09/27/24 hydrOXYzine HCL [Atarax] 50 mg PO TID 09/27/24 09/27/24 hydroCHLOROthiazide [Hydrodiuril] 25 mg PO HS 09/27/24 09/27/24 metFORMIN HCL [Glucophage] 1,000 mg PO HS 09/27/24 09/27/24 ondansetron HCL [Zofran] 8 mg PO TID PRN 09/27/24 09/27/24 oxyCODONE-APAP 10-325MG [Percocet 1 tab PO HS 09/27/24 09/27/24 10-325 mg] polyethylene glycoL 3350 [Miralax] 17 gm PO DAILY 09/27/24 09/27/24 Allergies Allergy/AdvReac Type Severity Reaction Status Date / Time adhesive tape Allergy Rash/Hives Verified 09/27/24 16:26 duloxetine [From Cymbalta] Allergy Drowsy, Verified 09/27/24 16:26 Vision changes morphine Allergy Vomiting Verified 09/27/24 16:26 pregabalin [From Lyrica] Allergy Drowsy, Verified 09/27/24 16:26 Vision changes Review of Systems ROS Statement: Those systems with pertinent positive or pertinent negative responses have been documented in the HPI. ROS Other: All systems not noted in ROS Statement are negative. Past Medical History Past Medical History: Cancer, GERD/Reflux, Hypertension, Musculoskeletal Disorder Additional Past Medical History / Comment(s): Right kidney stone. Hx kidney stones. "Ascending Aortic Aneurysym (4.1)". Degenerative Disc Disease. Small bowel obstruction 09/27/24. Migranes. Skin cancer removed. History of Any Multi-Drug Resistant Organisms: None Reported Past Surgical History: Appendectomy, Section, Cholecystectomy, Ear Surgery, Tubal Ligation, Uterine Ablation Additional Past Surgical History / Comment(s): Cearean Section X2. Lithotripsy. "Tubes clamped"(Tubal Ligation). Left ear surgery X5. Past Anesthesia/Blood Transfusion Reactions: No Reported Reaction Past Psychological History: Anxiety, Depression Smoking Status: Never smoker Past Alcohol Use History: None Reported Past Drug Use History: None Reported - Past Family History Mother Family Medical History: Cancer Additional Family Medical History / Comment(s): Skin cancer. General Exam Limitations: no limitations General appearance: alert, in no apparent distress Head exam: Present: atraumatic, normocephalic, normal inspection Eye exam: Present: normal appearance, PERRL, EOMI. Absent: scleral icterus, conjunctival injection, periorbital swelling ENT exam: Present: normal exam, mucous membranes moist Neck exam: Present: normal inspection, full ROM. Absent: tenderness, meningismus, lymphadenopathy Respiratory exam: Present: normal lung sounds bilaterally. Absent: respiratory distress, wheezes, rales, rhonchi, stridor Cardiovascular Exam: Present: regular rate, normal rhythm, normal heart sounds. Absent: systolic murmur, diastolic murmur, rubs, gallop, clicks GI/Abdominal exam: Present: soft, distended, tenderness, normal bowel sounds. Absent: guarding, rebound, rigid Course Vital Signs 09/27/24 09/27/24 09/27/24 14:41 15:38 16:10 Temperature 98.6 F 99.2 F Pulse Rate 97 103 H 84 Respiratory 18 18 18 Rate Blood Pressure 153/110 168/113 143/101 Blood Pressure [Left Arm] Blood Pressure [Right Arm] O2 Sat by Pulse 97 95 98 Oximetry 09/27/24 09/27/24 09/27/24 16:26 17:00 18:35 Temperature 99.4 F Pulse Rate 85 85 97 Respiratory 18 16 16 Rate Blood Pressure 151/101 149/92 142/90 Blood Pressure [Left Arm] Blood Pressure [Right Arm] O2 Sat by Pulse 97 95 96 Oximetry 09/27/24 09/27/24 09/27/24 22:12 22:19 22:25 Temperature 98.1 F 98.2 F Pulse Rate 92 89 Respiratory 18 18 Rate Blood Pressure 152/103 140/86 Blood Pressure 140/86 [Left Arm] Blood Pressure 139/93 [Right Arm] O2 Sat by Pulse 95 96 Oximetry Medical Decision Making - Medical Decision Making Was pt. sent in by a medical professional or institution (, PA, PROJECT ASST, urgent care, hospital, or [facility]...) When possible be specific @ -[facility] Did you speak to anyone other than the patient for history (EMS, parent, family, police, friend...)? What history was obtained from this source @ -No Did you review nursing and triage notes (agree or disagree)? Why? @ -I reviewed and agree with nursing and triage notes Were old charts reviewed (outside hosp., previous admission, EMS record, old EKG, old radiological studies, urgent care reports/EKG's, [facility] records)? Report findings @ -Reviewed labs and CT from [facility] Differential Diagnosis (chest pain, altered mental status, abdominal pain women, abdominal pain men, vaginal bleeding, weakness, fever, dyspnea, syncope, headache, dizziness, GI bleed, back pain, seizure, CVA, palpatations, mental health, musculoskeletal)? @ -Differential Abdominal Pain Women: Appendicitis, Cholecystitis, diverticulosis, ischemic bowel, pancreatitis, hepatitis, UTI, gastroenteritis, AAA, incarcerated hernia, bowel obstruction, constipation, inflammatory bowel, hepatitis, peptic ulcer disease, splenic infarction, perforated viscus, vulvitis, ovarian torsion, PID, kidney stone, placenta abruption, this is not meant to be an all-inclusive list EKG interpreted by me (3pts min.). @ -None X-rays interpreted by me (1pt min.). @ -None done CT interpreted by me (1pt min.). @ -None done U/S interpreted by me (1pt. min.). @ -None done What testing was considered but not performed or refused? (CT, X-rays, U/S, labs)? Why? @ -None What meds were considered but not given or refused? Why? @ -None Did you discuss the management of the patient with other professionals (professionals i.e. , PA, PROJECT ASST, lab, RT, psych nurse, hospice social worker, hoop riveting machine operator helper, teacher, financial services officer, piano case and bench assembler)? Give summary @ -Dr Bond for admission Was smoking cessation discussed for >3mins.? @ -No Was critical care preformed (if so, how long)? @ -No Were there social determinants of health that impacted care today? How? (Homelessness, low income, unemployed, alcoholism, drug addiction, transportation, low edu. Level, literacy, decrease access to med. care, retirement, rehab)? @ -No Was there de-escalation of care discussed even if they declined (Discuss DNR or withdrawal of care, Hospice)? DNR status @ -No What co-morbidities impacted this encounter? (DM, HTN, Smoking, COPD, CAD, Cancer, CVA, ARF, Chemo, Hep., AIDS, mental health diagnosis, sleep apnea, morbid obesity)? @ -None Was patient admitted / discharged? Hospital course, mention meds given and route, prescriptions, significant lab abnormalities, going to OR and other pertinent info. @ -Patient is admitted to the hospital for IV fluids, antiemetics, surgery evaluation for partial small bowel obstruction. Undiagnosed new problem with uncertain prognosis? @ -No Drug Therapy requiring intensive monitoring for toxicity (Heparin, Nitro, Insulin, Cardizem)? @ -No Were any procedures done? @ -No Diagnosis/symptom? @ -Partial small bowel obstruction Acute, or Chronic, or Acute on Chronic? @ -Acute Uncomplicated (without systemic symptoms) or Complicated (systemic symptoms)? @ -Complicated Side effects of treatment? @ -No Exacerbation, Progression, or Severe Exacerbation? @ -No Poses a threat to life or bodily function? How? (Chest pain, USA, LA, pneumonia, PE, COPD, DKA, ARF, appy, cholecystitis, CVA, Diverticulitis, Homicidal, Suicidal, threat to staff... and all critical care pts) @ -Yes surgical risk Disposition Clinical Impression: Partial small bowel obstruction Disposition: ADMITTED IP TO THIS [facility] Condition: Fair Time of Disposition: 14:53
[2024-09-27] MEDS: FAMOTIDINE 20 MG/2 ML VIAL IV STA (15:40)
[2024-09-27] MEDS: ONDANSETRON 4 MG/2 ML VIAL IVP STA (15:41)
[2024-09-27] MEDS ORDERED: ONDANSETRON 4 MG/2 ML VIAL IVP PRN (15:45)
[2024-09-27] MEDS ORDERED: HYDROmorphone 0.5 MG/0.5 ML SYRINGE IVP PRN (15:45)
[2024-09-27] MEDS ORDERED: NALOXONE 0.4 MG/ML 1 ML VIAL IV PRN (15:45)
[2024-09-27] MEDS: SODIUM CHLORIDE 0.9% 1,000 ML IV SCH (15:53)
[2024-09-27] MEDS: LABETALOL 5 MG/ML VIAL MDV IVP STA (16:01)
[2024-09-27] MEDS: HYDROmorphone 1 MG/ML 1 ML SYRINGE IVP PRN (22:27)
[2024-09-28] MEDS ORDERED: ETODOLAC 300 MG CAPSULE PO PRN (08:51)
[2024-09-28] MEDS ORDERED: FAMOTIDINE 20 MG TAB PO PRN (08:51)
[2024-09-28] MEDS ORDERED: diazePAM 5 MG TAB PO PRN (08:51)
[2024-09-28] MEDS ORDERED: CYCLOBENZAPRINE 10 MG TAB PO PRN (08:51)
[2024-09-28] MEDS ORDERED: NON FORMULARY DRUG (Lubiprostone [Amitiza] 24 MCG Capsule) PO PRN (08:51)
[2024-09-28] MEDS ORDERED: BUTALB/APAP/CAFF 50-325-40MG TAB PO PRN (08:51)
[2024-09-28] MEDS ORDERED: ONDANSETRON 4 MG TAB PO PRN (08:51)
[2024-09-28] MEDS: POTASSIUM CHLORIDE ER 10 MEQ TAB.ER.PRT PO SCH (10:03)
[2024-09-28] MEDS: polyethylene glycoL 3350 17 GM POWD.PACK PO SCH (10:03)
[2024-09-28] MEDS: ERGOCALCIFEROL 1,250 MCG (50,000 IU) CAPSULE PO SCH (10:04)
[2024-09-28] MEDS: hydrOXYzine HCL 25 MG TAB PO SCH (10:04)
--- NOTE | 2024-09-28 10:04 | P.GSCN ---
History of Present Illness Consult date: 09/28/24 Reason for Consult: Abdominal pain History of present illness: Patient came to the hospital in [place] with complaints of persistent vomiting that started Sunday night. Patient described crampy pain as well. Patient has a history of chronic constipation. She takes narcotics at home for spinal issues. Last bowel movement about a week ago. She is passing flatus even this morning. She says her abdomen feels sore but it feels more like a muscular soreness today from all the vomiting she was doing. Denies any cramps today. She had a CAT scan performed suggesting partial small bowel obstruction. CAT scan disc is here but it is not on the system yet. She is afebrile. No labs here. Review of Systems The patient denies any acute changes in vision or hearing, no dysphagia or odynophagia, no chest pain or shortness of breath, no dysuria or hematuria, no headache, no runny nose, no rectal bleeding or melena, no unexplained weight loss Past Medical History Past Medical History: Cancer, GERD/Reflux, Hypertension, Musculoskeletal Disorder Additional Past Medical History / Comment(s): Right kidney stone. Hx kidney stones. "Ascending Aortic Aneurysym (4.1)". Degenerative Disc Disease. Small bowel obstruction 09/27/24. Migranes. Skin cancer removed. History of Any Multi-Drug Resistant Organisms: None Reported Past Surgical History: Appendectomy, Section, Cholecystectomy, Ear Surgery, Tubal Ligation, Uterine Ablation Additional Past Surgical History / Comment(s): Cearean Section X2. Lithotripsy. "Tubes clamped"(Tubal Ligation). Left ear surgery X5. Past Anesthesia/Blood Transfusion Reactions: No Reported Reaction Past Psychological History: Anxiety, Depression Smoking Status: Never smoker Past Alcohol Use History: None Reported Past Drug Use History: None Reported - Past Family History Mother Family Medical History: Cancer Additional Family Medical History / Comment(s): Skin cancer. Medications and Allergies Home Medications Medication Instructions Recorded Confirmed Type Orphenadrine [Norflex] 100 mg PO DAILY PRN 07/07/21 09/27/24 History Pantoprazole [Protonix] 40 mg PO HS 07/14/21 09/27/24 History Atogepant [Qulipta] 60 mg PO HS 09/27/24 09/27/24 History Atorvastatin [Lipitor] 40 mg PO HS 09/27/24 09/27/24 History Azelastine HCl [Astelin Nasal 2 spr EA NOSTRIL HS 09/27/24 09/27/24 History [place]] Butalb/APAP/Caff 50-325-40Mg 1 tab PO Q4H PRN 09/27/24 09/27/24 History [Fioricet 50-325-40] Ergocalciferol [Vitamin D2 (1250 1,250 mcg PO ARBOLEDA 09/27/24 09/27/24 History Mcg = 56420 Iu)] Famotidine 40 mg PO DAILY PRN 09/27/24 09/27/24 History Famotidine 40 mg PO HS 09/27/24 09/27/24 History Ketorolac [Toradol] 10 mg PO BID PRN 09/27/24 09/27/24 History Lubiprostone [Amitiza] 24 mcg PO DAILY PRN 09/27/24 09/27/24 History Lubiprostone [Amitiza] 24 mcg PO HS 09/27/24 09/27/24 History NIFEdipine XL [Procardia XL] 60 mg PO HS 09/27/24 09/27/24 History Naloxegol Oxalate [Movantik] 25 mg PO HS 09/27/24 09/27/24 History Nortriptyline HCl [Pamelor] 150 mg PO HS 09/27/24 09/27/24 History Orphenadrine [Norflex] 100 mg PO HS 09/27/24 09/27/24 History Oxybutynin ER [Ditropan XL] 10 mg PO HS 09/27/24 09/27/24 History Potassium Chloride ER [K-Dur 10] 10 meq PO DAILY 09/27/24 09/27/24 History QUEtiapine [SEROquel] 200 mg PO HS 09/27/24 09/27/24 History Triamcinolone 0.1% Cream [Kenalog 1 applic TOPICAL BID PRN 09/27/24 09/27/24 History 0.1% Cream] diazePAM [Valium] 5 mg PO DAILY PRN 09/27/24 09/27/24 History diazePAM [Valium] 5 mg PO HS 09/27/24 09/27/24 History hydrOXYzine HCL [Atarax] 50 mg PO TID 09/27/24 09/27/24 History hydroCHLOROthiazide [Hydrodiuril] 25 mg PO HS 09/27/24 09/27/24 History metFORMIN HCL [Glucophage] 1,000 mg PO HS 09/27/24 09/27/24 History ondansetron HCL [Zofran] 8 mg PO TID PRN 09/27/24 09/27/24 History oxyCODONE-APAP 10-325MG [Percocet 1 tab PO HS 09/27/24 09/27/24 History 10-325 mg] polyethylene glycoL 3350 [Miralax] 17 gm PO DAILY 09/27/24 09/27/24 History Allergies Allergy/AdvReac Type Severity Reaction Status Date / Time adhesive tape Allergy Rash/Hives Verified 09/27/24 16:26 duloxetine [From Cymbalta] Allergy Drowsy, Verified 09/27/24 16:26 Vision changes morphine Allergy Vomiting Verified 09/27/24 16:26 pregabalin [From Lyrica] Allergy Drowsy, Verified 09/27/24 16:26 Vision changes Surgical - Exam Vital Signs Temp Pulse Resp BP Pulse Ox 98.6 F 97 18 153/110 97 09/27/24 14:41 09/27/24 14:41 09/27/24 14:41 09/27/24 14:41 09/27/24 14:41 Physical exam: General: Well-developed, well-nourished HEENT: Normocephalic, sclerae nonicteric Abdomen: Mild tenderness mid abdomen, previous scar noted, no palpable hernia, nondistended Extremities: No edema Neuro: Alert and oriented Assessment and Plan (1) Partial small bowel obstruction Narrative/Plan: 54-year-old female with partial small bowel obstruction on recent CAT scan. Will have the CAT scan loaded into the system and review. Meanwhile we will order repeat abdominal x-rays today. Check labs. Patient describes frequent constipation and has not had a bowel movement in over a week. Will order a enema today. Keep n.p.o. for now. Current Visit: Yes Status: Acute Code(s): K56.600 - PARTIAL INTESTINAL OBSTRUCTION, UNSPECIFIED TO CAUSE SNOMED Code(s): 177743150
[2024-09-28] MEDS ORDERED: DOCUSATE 283 MG/5 ML ENEMA RECTAL STA (10:20)
[2024-09-28] MEDS: DOCUSATE 283 MG/5 ML ENEMA RECTAL STA ×2 (10:32→12:26)
--- NOTE | 2024-09-28 11:27 | XR ---
EXAMINATION TYPE: XR abdomen 2V DATE OF EXAM: 09/28/2024 11:16 AM COMPARISON: 09/28/2024 CLINICAL INDICATION: Female, 54 years old with history of Follow-up obstruction, TECHNIQUE: Single view of the abdomen. FINDINGS: There is dilated small bowel measuring up to 4.5 cm with air-fluid levels seen. Findings appear to pr ogress slightly with maximal small bowel dilatation of 4 cm previously. Paucity of air within the col on. No convincing evidence for pneumoperitoneum. No unusual calcifications. The lung bases are clear. The osseous structures are intact. IMPRESSION: 1. Nonspecific bowel gas pattern with distal small bowel obstruction difficult to exclude. Mild inte rval progression suggested. [facility], , 09/28/2024 11:25 AM
[2024-09-28 11:38] LABS: Glucose,Whole Blood 89 mg/dL (70-110)
[2024-09-28] MEDS: INSULIN ASPART (NovoLOG) 100 UNIT/ML VIAL SQ SCH (11:39)
--- NOTE | 2024-09-28 11:44 | P.HPIM ---
History of Present Illness H&P Date: 09/28/24 54-year-old female with medical history significant for acid reflux, hypertension, ascending aortic aneurysm, degenerative disc disease, appendectomy, cholecystectomy. Was sent down from [facility] with concern for a partial small bowel obstruction. Patient states that she has not had a bowel movement for couple days and ended up vomiting for over 14 hours. Started Sunday night. Patient had crampy abdominal pain. She takes Percocet tens at home 2-3 times per day states that she does have issues with frequent bouts of constipation requiring manual disimpaction. She is not having any fever or chills. No shortness of breath or chest pain. She does feel like her abdomen pain is also sore from the vomiting. She states that the vomit itself was yellow however she did have some frothy mckeon emesis as well. She has been having significant acid reflux symptoms with burning sensation she has been taking 80 mg of Protonix a day as well as up to 3 to 4 tablets of Pepcid. Patient was started on normal saline and bowel rest n.p.o. diet with general surgery consultation. She is evaluated today she is passing gas she is having positive bowel sounds in all 4 quadrants there is no abdominal distention noted. REVIEW OF SYSTEMS: CONSTITUTIONAL: No fever, no malaise, no fatigue. HEENT: No recent visual problems or hearing problems. Denied any sore throat. CARDIOVASCULAR: No chest pain, orthopnea, PND, no palpitations, no syncope. PULMONARY: No shortness of breath, no cough, no hemoptysis. GASTROINTESTINAL: No diarrhea patient reports nausea vomiting and abdominal pain NEUROLOGICAL: No headaches, no weakness, no numbness. HEMATOLOGICAL: Denies any bleeding or petechiae. GENITOURINARY: Denies any burning micturition, frequency, or urgency. MUSCULOSKELETAL/RHEUMATOLOGICAL: Denies any joint pain, swelling, or any muscle pain. ENDOCRINE: Denies any polyuria or polydipsia. The rest of the 14-point review of systems is negative. PHYSICAL EXAMINATION: GENERAL: The patient is alert and oriented x3, not in any acute distress. Well developed, well nourished. HEENT: Pupils are round and equally reacting to light. EOMI. No scleral icterus. No conjunctival pallor. Normocephalic, atraumatic. No pharyngeal erythema. No thyromegaly. CARDIOVASCULAR: S1 and S2 present. No murmurs, rubs, or gallops. PULMONARY: Chest is clear to auscultation, no wheezing or crackles. ABDOMEN: Soft, tenderness right and left lower quadrant tender, nondistended, normoactive bowel sounds. No palpable organomegaly. MUSCULOSKELETAL: No joint swelling or deformity. EXTREMITIES: No cyanosis, clubbing, or pedal edema. NEUROLOGICAL: Gross neurological examination did not reveal any focal deficits. SKIN: No rashes. Assessment and plan Partial small bowel obstruction secondary to severe constipation from narcotic use History of hypertension History of gastroesophageal reflux disease patient required multiple doses of Protonix and Pepcid daily History of ascending aortic aneurysm Degenerative disc disease Anxiety/depression Chronic pain GI prophylaxis patient is given IV Protonix DVT prophylaxis Full Code Plan Continue fluids normal saline at 75 mL/h Patient will remain n.p.o. due to a bowel obstruction and general surgery following with further recommendations pending For abdominal x-ray today Repeat blood work monitor electrolytes and renal function We will hold patient's Protonix and Pepcid from home patient will be given IV Protonix and can use Maalox for GI prophylaxis The impression and plan of care has been dictated by Nimco Levy Nurse Practitioner as directed. Dr. Karsten MD I have performed a history and physical examination and medical decision making of this patient, discussed the same with the dictator, and agree with the dictators assessment and plan as written, documented as a scribe. Based on total visit time, I have performed more than 50% of this visit. Past Medical History Past Medical History: Cancer, GERD/Reflux, Hypertension, Musculoskeletal Disorder Additional Past Medical History / Comment(s): Right kidney stone. Hx kidney stones. "Ascending Aortic Aneurysym (4.1)". Degenerative Disc Disease. Small bowel obstruction 09/27/24. Migranes. Skin cancer removed. History of Any Multi-Drug Resistant Organisms: None Reported Past Surgical History: Appendectomy, Section, Cholecystectomy, Ear Surgery, Tubal Ligation, Uterine Ablation Additional Past Surgical History / Comment(s): Cearean Section X2. Lithotripsy. "Tubes clamped"(Tubal Ligation). Left ear surgery X5. Past Anesthesia/Blood Transfusion Reactions: No Reported Reaction Past Psychological History: Anxiety, Depression Smoking Status: Never smoker Past Alcohol Use History: None Reported Past Drug Use History: None Reported - Past Family History Mother Family Medical History: Cancer Additional Family Medical History / Comment(s): Skin cancer. Medications and Allergies Home Medications Medication Instructions Recorded Confirmed Type Orphenadrine [Norflex] 100 mg PO DAILY PRN 07/07/21 09/27/24 History Pantoprazole [Protonix] 40 mg PO HS 07/14/21 09/27/24 History Atogepant [Qulipta] 60 mg PO HS 09/27/24 09/27/24 History Atorvastatin [Lipitor] 40 mg PO HS 09/27/24 09/27/24 History Azelastine HCl [Astelin Nasal 2 spr EA NOSTRIL HS 09/27/24 09/27/24 History Mosquero] Butalb/APAP/Caff 50-325-40Mg 1 tab PO Q4H PRN 09/27/24 09/27/24 History [Fioricet 50-325-40] Ergocalciferol [Vitamin D2 (1250 1,250 mcg PO ARBOLEDA 09/27/24 09/27/24 History Mcg = 61344 Iu)] Famotidine 40 mg PO DAILY PRN 09/27/24 09/27/24 History Famotidine 40 mg PO HS 09/27/24 09/27/24 History Ketorolac [Toradol] 10 mg PO BID PRN 09/27/24 09/27/24 History Lubiprostone [Amitiza] 24 mcg PO DAILY PRN 09/27/24 09/27/24 History Lubiprostone [Amitiza] 24 mcg PO HS 09/27/24 09/27/24 History NIFEdipine XL [Procardia XL] 60 mg PO HS 09/27/24 09/27/24 History Naloxegol Oxalate [Movantik] 25 mg PO HS 09/27/24 09/27/24 History Nortriptyline HCl [Pamelor] 150 mg PO HS 09/27/24 09/27/24 History Orphenadrine [Norflex] 100 mg PO HS 09/27/24 09/27/24 History Oxybutynin ER [Ditropan XL] 10 mg PO HS 09/27/24 09/27/24 History Potassium Chloride ER [K-Dur 10] 10 meq PO DAILY 09/27/24 09/27/24 History QUEtiapine [SEROquel] 200 mg PO HS 09/27/24 09/27/24 History Triamcinolone 0.1% Cream [Kenalog 1 applic TOPICAL BID PRN 09/27/24 09/27/24 History 0.1% Cream] diazePAM [Valium] 5 mg PO DAILY PRN 09/27/24 09/27/24 History diazePAM [Valium] 5 mg PO HS 09/27/24 09/27/24 History hydrOXYzine HCL [Atarax] 50 mg PO TID 09/27/24 09/27/24 History hydroCHLOROthiazide [Hydrodiuril] 25 mg PO HS 09/27/24 09/27/24 History metFORMIN HCL [Glucophage] 1,000 mg PO HS 09/27/24 09/27/24 History ondansetron HCL [Zofran] 8 mg PO TID PRN 09/27/24 09/27/24 History oxyCODONE-APAP 10-325MG [Percocet 1 tab PO HS 09/27/24 09/27/24 History 10-325 mg] polyethylene glycoL 3350 [Miralax] 17 gm PO DAILY 09/27/24 09/27/24 History Allergies Allergy/AdvReac Type Severity Reaction Status Date / Time adhesive tape Allergy Rash/Hives Verified 09/27/24 16:26 duloxetine [From Cymbalta] Allergy Drowsy, Verified 09/27/24 16:26 Vision changes morphine Allergy Vomiting Verified 09/27/24 16:26 pregabalin [From Lyrica] Allergy Drowsy, Verified 09/27/24 16:26 Vision changes Physical Exam Vitals: Vital Signs Temp Pulse Pulse Pulse Resp BP BP 09/28/24 09:53 85 16 09/28/24 07:15 98.3 F 85 16 09/28/24 00:32 98.3 F 84 18 09/27/24 23:47 82 09/27/24 23:00 98.9 F 88 18 09/27/24 22:25 140/86 09/27/24 22:19 98.2 F 89 18 140/86 09/27/24 22:12 98.1 F 92 18 152/103 09/27/24 18:35 99.4 F 97 16 142/90 09/27/24 17:00 85 16 149/92 09/27/24 16:26 85 18 151/101 09/27/24 16:10 84 18 143/101 09/27/24 15:38 99.2 F 103 H 18 168/113 09/27/24 14:41 98.6 F 97 18 153/110 BP Pulse Ox 09/28/24 09:53 09/28/24 07:15 151/94 97 09/28/24 00:32 143/89 92 L 09/27/24 23:47 152/96 95 09/27/24 23:00 150/99 92 L 09/27/24 22:25 139/93 09/27/24 22:19 96 09/27/24 22:12 95 09/27/24 18:35 96 09/27/24 17:00 95 09/27/24 16:26 97 09/27/24 16:10 98 09/27/24 15:38 95 09/27/24 14:41 97 Intake and Output 09/27/24 09/28/24 09/28/24 22:59 06:59 14:59 Intake Total 0 Balance 0 Intake: Oral 0 Other: # Voids 2 Weight 79.379 kg Thrombosis Risk Factor Assmnt - Choose All That Apply Each Factor Represents 1 point: Age 41-60 years, Obesity (BMI >25) Thrombosis Risk Factor Assessment Total Risk Factor Score: 2 Thrombosis Risk Factor Assessment Level: Low Risk Assessment and Plan Time with Patient: Greater than 30
[2024-09-28] MEDS: DEXTROSE 50% SYRINGE 50 ML IVP PRN (18:07)
[2024-09-28 18:35] LABS: Glucose,Whole Blood 67 mg/dL (70-110)
[2024-09-28 19:46] LABS: Glucose,Whole Blood 71 mg/dL (70-110)
[2024-09-28] MEDS ORDERED: PANTOPRAZOLE 40 MG TABLET PO SCH (21:00)
[2024-09-28] MEDS ORDERED: FAMOTIDINE 20 MG TAB PO SCH (21:00)
[2024-09-28] MEDS: AZELASTINE 137MCG/SPRAY EA NOSTRIL SCH (21:04)
[2024-09-28] MEDS: oxyCODONE-APAP 10-325MG 1 EACH TAB PO SCH (21:04)
[2024-09-28] MEDS: ATORVASTATIN 40 MG TAB PO SCH (21:04)
[2024-09-28] MEDS: CYCLOBENZAPRINE 10 MG TAB PO SCH (21:05)
[2024-09-28] MEDS: diazePAM 5 MG TAB PO SCH (21:05)
[2024-09-28] MEDS: HEPARIN SODIUM,PORCINE 5,000 UNIT/ML 1 ML VIAL SQ SCH (21:05)
[2024-09-28] MEDS: hydroCHLOROthiazide 25 MG TAB PO SCH (21:05)
[2024-09-28] MEDS: NON FORMULARY DRUG (Lubiprostone [Amitiza] 24 MCG Capsule) PO SCH (21:06)
[2024-09-28] MEDS: metFORMIN 500 MG TAB PO SCH (21:06)
[2024-09-28] MEDS: NON FORMULARY DRUG (Atogepant [Qulipta] 60 MG Tablet) PO SCH (21:06)
[2024-09-28] MEDS: NORTRIPTYLINE 25 MG CAP PO SCH (21:07)
[2024-09-28] MEDS: QUEtiapine 200 MG TAB PO SCH (21:07)
[2024-09-28] MEDS: OXYBUTYNIN 10 MG TAB.ER.24 PO SCH (21:07)
[2024-09-28] MEDS: NON FORMULARY DRUG (Naloxegol Oxalate [Movantik] 25 MG Tablet) PO SCH (21:27)
[2024-09-29 02:19] LABS: Glucose,Whole Blood 68 mg/dL (70-110)
[2024-09-29] MEDS: DEXTROSE 50% SYRINGE 50 ML IVP PRN (02:24)
[2024-09-29] MEDS: DEXTROSE 5%-0.9% NACL 1,000 ML IV SCH (02:26)
[2024-09-29 05:32] LABS: Glucose,Whole Blood 91 mg/dL (70-110)
[2024-09-29] MEDS: PANTOPRAZOLE 40 MG/10 ML VIAL IVP SCH (08:51)
[2024-09-29 08:58] LABS: Basophils # (A) 0.05 X 10*3/uL (0.00-0.10); Basophils % (A) 0.5 %; Eosinophils # (A) 0.35 X 10*3/uL (0.04-0.35); Eosinophils % (A) 3.4 %; HCT 36.7 % (37.2-50.0); HGB 11.3 g/dL (12.0-17.0); Lymphocytes % (A) 20.3 %; MCH 26.8 pg (27.0-32.0); MCHC 30.8 g/dL (32.0-37.0); Mean Platelet Volume 9.9 FL (9.5-12.2); Monocytes # (A) 1.12 X 10*3/uL (0.20-1.00); Monocytes % (A) 10.8 %; NRBC Per 100 WBC 0 X 10*3/uL (0.00-0.01); Neutrophils # (A) 6.69 X 10*3/uL (1.80-7.70); Neutrophils % (A) 64.7 %; Platelet Count 287 X 10*3/uL (140-440); RBC 4.22 X 10*6/uL (4.10-5.60); RDW 13.9 % (11.5-14.5); WBC 10.34 X 10*3/uL (4.50-10.00)
[2024-09-29 09:24] LABS: Blood Urea Nitrogen 13.4 mg/dL (9.0-27.0); Glucose 99 mg/dL (70-110)
[2024-09-29 09:25] LABS: Calcium 8.6 mg/dL (8.7-10.3); Carbon Dioxide 24.7 mmol/L (21.6-31.8); Chloride 108 mmol/L (96-109); Magnesium 1.7 mg/dL (1.5-2.4); Potassium 3.5 mmol/L (3.5-5.5); Sodium 141 mmol/L (135-145)
[2024-09-29] MEDS ORDERED: CYCLOBENZAPRINE 5 MG TAB PO PRN (11:23)
--- NOTE | 2024-09-29 11:49 | P.PN ---
Subjective Progress Note Date: 09/29/24 SURGICAL PROGRESS NOTE CHIEF COMPLAINT: Partial small bowel obstruction HISTORY OF PRESENT ILLNESS: Patient continues to have abdominal pain. She reports that the pain is the same as the pain that she came in with. Patient had very small amount of stool with the enema. She reports pain is mostly acro ss the upper abdomen. She is having a small amount of flatus. Denies any nausea or vomiting. Abdominal x-ray had reported distal small bowel obstruction difficult to exclude. She and reported dilated small bowel. Afebrile. BP 99/66 this morning WBC 10.34 Hgb 11.3 platelets 287 PHYSICAL EXAM: VITAL SIGNS: Reviewed. GENERAL: Well-developed in no acute distress. HEENT: No sclera icterus. Extraocular movements grossly intact. Moist buccal mucosa. Head is atraumatic, normocephalic. ABDOMEN: Soft. Nondistended. Tenderness across mid abdomen NEUROLOGIC: Alert and oriented. Cranial nerves II through XII grossly intact. ASSESSMENT: 1. Partial small bowel obstruction PLAN: -Small bowel follow-through ordered with Gastrografin -Keep patient n.p.o. -Continue IV fluids -Continue supportive care -Encourage patient to ambulate Physician Ripshear Operator note has been reviewed by physician. Signing provider agrees with the documented findings, assessment, and plan of care. I have personally seen and examined the patient, reviewed the PROPELLER INSPECTOR /PAs history, exam and MDM and agree with the assessment and plan as written. Based on total visit time, I have performed more than 50% of the visit. As above: Patient was having crampy abdominal pain last night. Small bowel follow-through ordered for today. No bowel movement thus far. Images show contrast in the small bowel still. Await completion of that study. If small bowel obstruction confirmed will proceed with surgery tomorrow. Objective - Vital Signs Vital signs: Vital Signs Temp 98.2 F 09/29/24 07:00 Pulse 85 09/29/24 07:00 Resp 16 09/29/24 07:00 BP 99/66 09/29/24 07:00 Pulse Ox 94 L 09/29/24 07:00 FiO2 Intake & Output 09/28/24 09/29/24 09/29/24 18:59 06:59 18:59 Intake Total 100 0 0 Balance 100 0 0 Intake: Intake, IV Titration 100 Amount Sodium Chloride 0.9% 1, 100 000 ml @ 75 mls/hr IV . [id number] [facility] Rx#:[id number] Oral 0 0 Other: # Voids 2 - Labs CBC & Chem 7: 09/29/24 05:23 09/29/24 05:23 Labs: Abnormal Lab Results - Last 24 Hours (Table) 09/28/24 09/29/24 09/29/24 Range/Units 17:53 02:17 05:23 WBC 10.34 H (4.50-10.00) X 10*3/uL Hgb 11.3 L (12.0-17.0) g/dL Hct 36.7 L (37.2-50.0) % MCH 26.8 L (27.0-32.0) pg MCHC 30.8 L (32.0-37.0) g/dL Monocytes # 1.12 H (0.20-1.00) X 10*3/uL POC Glucose (mg/dL) 67 L 68 L (70-110) mg/dL Calcium (8.7-10.3) mg/dL 09/29/24 Range/Units 05:23 WBC (4.50-10.00) X 10*3/uL Hgb (12.0-17.0) g/dL Hct (37.2-50.0) % MCH (27.0-32.0) pg MCHC (32.0-37.0) g/dL Monocytes # (0.20-1.00) X 10*3/uL POC Glucose (mg/dL) (70-110) mg/dL Calcium 8.6 L (8.7-10.3) mg/dL
[2024-09-29 11:54] LABS: Glucose,Whole Blood 90 mg/dL (70-110)
--- NOTE | 2024-09-29 13:23 | P.PN ---
Subjective Progress Note Date: 09/29/24 Principal diagnosis: Hospital course: 54-year-old female with medical history significant for acid reflux, hypertension, ascending aortic aneurysm, degenerative disc disease, appendectomy, cholecystectomy. Was sent down from [facility] with lázaro rn for a partial small bowel obstruction. Patient states that she has not had a bowel movement for couple days and ended up vomiting for over 14 hours. Started Sunday night. Patient had crampy abdominal pain. She takes Percocet tens at home 2-3 times per day states that she does have issues with frequent bouts of constipation requiring manual disimpaction. She is not having any fever or chills. No shortness of breath or chest pain. She does feel like her abdomen pain is also sore from the vomiting. She states that the vomit itself was yellow however she did have some frothy mckeon emesis as well. She has been having significant acid reflux symptoms with burning sensation she has been taking 80 mg of Protonix a day as well as up to 3 to 4 tablets of Pepcid. Patient was started on normal saline and bowel rest n.p.o. diet with general surgery consultation. She is evaluated today she is passing gas she is having positive bowel sounds in all 4 quadrants there is no abdominal distention noted. 09/29/24: Patient seen and examined at bedside today. She still complains of abdominal pain. She mentions passing flatus but has not had a bowel movement. She reports having chronic constipation for several years and does notice some blood with her bowel movements when she attempts manual disimpaction. Labs today show WBC 10.34, hemoglobin 11.90, hematocrit 36.7, sodium 141, potassium 3.5, magnesium 1.7. Abdomen x-ray shows nonspecific bowel gas pattern with distal small bowel obstruction difficult to exclude Review of systems: Pertinent positives and negatives as discussed in HPI, a complete review of systems was performed and all other systems are negative. Vitals: Signs Reviewed Physical examination: General: nontoxic, no distress, appears at stated age Derm: warm, dry, intact Head: atraumatic, normocephalic, symmetric Eyes: EOMI, anicteric sclera Mouth: no lip lesion, mucus membranes moist Cardiovascular: S1 S2 reg, no murmur Lungs: CTA bilateral, no rhonchi, no rales, no accessory muscle use Abdominal: soft, non-tender to palpataion Extremities: No cyanosis, clubbing, or pedal edema. Neuro: Alert, Oriented, Gross neurological examination did not reveal any focal deficits. Psych: well appearing, appropriate affect Assessment/Plan: Patient is a 54 year old female with PMH of acid reflux, hypertension, ascending aortic aneurysm, degenerative disc disease, appendectomy, cholecystectomy presented to the ED as a transfer from [facility] for crampy abdominal pain. She has been admitted for partial small bowel obstruction. She received an enema for constipation and continues to be NPO. Small bowel follow through ordered with Gastrografin. Active: #. Partial small bowel obstruction secondary to severe constipation from narcotic use -S/p enema yesterday, had a small bowel movement -Remain NPO -Continue MiraLAX 17 g p.o. daily, lubiprostone 24 mcg p.o. at bedtime and daily as needed for constipation and GI upset -Continue Naloxegol oxalate 25 mg PO HS -Continue diazepam 5 mg p.o. at bedtime and daily as needed, cyclobenzaprine 5 mg p.o. at bedtime and daily as needed, Fioricet 1 each p.o. every 4 hours as needed for pain management -Ketorolac 15 mg IVP Q6HR PRN added -Small bowel follow-through ordered with Gastrografin -Surgery is following #. Nausea and vomiting -Continue ondansetron 4 mg IVP every 8 hours as needed #. Hypokalemia Continue Potassium chloride 10 meq PO Daily Chronic: #. Anxiety/depression -Continue Seroquel 200 mg p.o. at bedtime, nortriptyline 150 mg p.o. at bedtime, hydroxyzine 50 mg p.o. 3 times daily #. Overactive bladder -Continue Oxybutynin 10 mg p.o. at bedtime #. Hypertension -Continue nifedipine 60 mg p.o. at bedtime -Hydrochlorthiazide discontinued #. Diabetes mellitus -Continue Insulin sliding scale with ACHS blood glucose monitoring -Metformin discontinued #. Hyperlipidemia -Continue atorvastatin 40 mg p.o. at bedtime #. Migraine headache -Continue atogepant 60 mg p.o. at bedtime #. Allergic rhinitis -Continue Azelastine spray 2 sprays in each nostril at bedtime #. History of gastroesophageal reflux disease patient required multiple doses of Protonix and Pepcid daily -Continue Protonix 40 mg IVP daily -Hold home meds Pantoprazole and Pepcid F: 0.9 normal saline at 75 mL/h E: Potassium chloride 10 meq Daily N: NPO A: Ambulatory DVT prophylaxis: Heparin SQ 5000 units every 12 hours GI prophylaxis: Pantoprazole 40 mg IVP daily Objective - Vital Signs Vital signs: Vital Signs Temp 98.2 F 09/29/24 07:00 Pulse 85 09/29/24 07:00 Resp 16 09/29/24 07:00 BP 99/66 09/29/24 07:00 Pulse Ox 94 L 09/29/24 07:00 FiO2 Intake & Output 09/28/24 09/29/24 09/29/24 18:59 06:59 18:59 Intake Total 100 0 Balance 100 0 Intake: Intake, IV Titration 100 Amount Sodium Chloride 0.9% 1, 100 000 ml @ 75 mls/hr IV . [id number] [facility] Rx#:[id number] Oral 0 Other: # Voids 2 - Labs CBC & Chem 7: 09/29/24 05:23 09/29/24 05:23 Labs: Abnormal Lab Results - Last 24 Hours (Table) 09/28/24 09/29/24 Range/Units 17:53 02:17 POC Glucose (mg/dL) 67 L 68 L (70-110) mg/dL
[2024-09-29] MEDS ORDERED: LACTULOSE 20 GM/30 ML CUP PO PRN (13:29)
[2024-09-29] MEDS ORDERED: LACTULOSE 20 GM/30 ML CUP PO SCH (16:00)
[2024-09-29 17:06] LABS: Glucose,Whole Blood 72 mg/dL (70-110)
[2024-09-29 20:54] LABS: Glucose,Whole Blood 85 mg/dL (70-110)
[2024-09-29] MEDS: CYCLOBENZAPRINE 5 MG TAB PO SCH (20:59)
[2024-09-29] MEDS: KETOROLAC 15 MG/ML 1 ML VIAL IVP PRN (21:00)
[2024-09-29] MEDS: KETOROLAC 15 MG/ML 1 ML VIAL IVP SCH (21:10)
[2024-09-30 05:27] LABS: Glucose,Whole Blood 84 mg/dL (70-110)
[2024-09-30 08:44] LABS: HCT 36.5 % (37.2-50.0); HGB 11.6 g/dL (12.0-17.0); MCH 26.6 pg (27.0-32.0); MCHC 31.8 g/dL (32.0-37.0); MCV 83.7 FL (80.0-97.0); Mean Platelet Volume 9.4 FL (9.5-12.2); NRBC Per 100 WBC 0 X 10*3/uL (0.00-0.01); Platelet Count 273 X 10*3/uL (140-440); RBC 4.36 X 10*6/uL (4.10-5.60); RDW 13.6 % (11.5-14.5); WBC 8.18 X 10*3/uL (4.50-10.00)
--- NOTE | 2024-09-30 08:44 | FL ---
EXAMINATION TYPE: FL small bowel follow through DATE OF EXAM: 09/29/2024 COMPARISON: None CLINICAL INDICATION: Female, 54 years old with history of Gastrografin, obstruction; [facility], TECHNIQUE: A single contrast small bowel follow through is performed utilizing Gastrografin.. The patient could only ingest a small amount of contrast. COMPARISON: None FINDINGS: Final Coat Sprayer image of the abdomen shows extensive retained fecal debris throughout the colon. Sco liosis and degenerative changes spine. Surgical clips right upper quadrant. There are prominent small bowel loops with delay in passage of contrast in the colon not seen at 2 ho urs. Small bowel loops measuring up to 3.2 cm. No definitive transition point. No contrast was seen w ithin the colon. Vascular calcifications in the pelvis. Surgical changes involving the pelvis. IMPRESSION: Limited exam as the patient could only ingest a small amount of contrast and became nause ated and could not continue with additional contrast. 1. Prominent small bowel loops measuring up to 3.3 cm. There is delay in transit not seen at 2 hours. Recommend abdominal x-ray to determine if contrast passes into the colon. 2. No definite transition point. Differential diagnosis continues to include ileus versus partial obs truction. 3. There is a large amount of retained fecal debris within the right colon which could be contributin g to the findings. Correlate clinically. [facility], , 09/30/2024 8:41 AM
[2024-09-30 09:00] LABS: BUN/Creat Ratio 11.67 Ratio (12.00-20.00); Blood Urea Nitrogen 10.5 mg/dL (9.0-27.0); Calcium 8.7 mg/dL (8.7-10.3); Carbon Dioxide 23.9 mmol/L (21.6-31.8); Chloride 106 mmol/L (96-109); Glucose 87 mg/dL (70-110); Potassium 3.4 mmol/L (3.5-5.5); Sodium 147 mmol/L (135-145)
--- NOTE | 2024-09-30 10:51 | XR ---
EXAMINATION TYPE: XR abdomen 2V DATE OF EXAM: 09/30/2024 10:28 AM COMPARISON: Small bowel follow-through 09/29/2024 CLINICAL INDICATION: Female, 54 years old with distention, Follow-up obstruction, , FINDINGS: Oral contrast has largely progressed into the colon. Multiple pelvic phleboliths. Tubal lig ation clips in the pelvis. There minimal residual diluted contrast within right abdominal small bowel loops though no obvious dilated small bowel is clearly appreciated. IMPRESSION: Oral contrast now progressed into the colon. No obvious dilated small bowel loops on the present exam. Consider improving ileus rather than small bowel obstruction. Follow-up recommended. [facility], , 09/30/2024 10:49 AM
[2024-09-30 12:19] LABS: Glucose,Whole Blood 66 mg/dL (70-110)
--- NOTE | 2024-09-30 14:37 | P.PN ---
Subjective Progress Note Date: 09/30/24 Principal diagnosis: Hospital course: 54-year-old female with medical history significant for acid reflux, hypertension, ascending aortic aneurysm, degenerative disc disease, appendectomy, cholecystectomy. Was sent down from [facility] with lázaro rn for a partial small bowel obstruction. Patient states that she has not had a bowel movement for couple days and ended up vomiting for over 14 hours. Started Sunday night. Patient had crampy abdominal pain. She takes Percocet tens at home 2-3 times per day states that she does have issues with frequent bouts of constipation requiring manual disimpaction. She is not having any fever or chills. No shortness of breath or chest pain. She does feel like her abdomen pain is also sore from the vomiting. She states that the vomit itself was yellow however she did have some frothy mckeon emesis as well. She has been having significant acid reflux symptoms with burning sensation she has been taking 80 mg of Protonix a day as well as up to 3 to 4 tablets of Pepcid. Patient was started on normal saline and bowel rest n.p.o. diet with general surgery consultation. She is evaluated today she is passing gas she is having positive bowel sounds in all 4 quadrants there is no abdominal distention noted. 09/29/24: Patient seen and examined at bedside today. She still complains of abdominal pain. She mentions passing flatus but has not had a bowel movement. She reports having chronic constipation for several years and does notice some blood with her bowel movements when she attempts manual disimpaction. Labs today show WBC 10.34, hemoglobin 11.90, hematocrit 36.7, sodium 141, potassium 3.5, magnesium 1.7. Abdomen x-ray shows nonspecific bowel gas pattern with distal small bowel obstruction difficult to exclude. 09/30/24: Patient evaluated today. No acute events overnight. She complains of abdominal pain that is 5/10 severity and notes a slight improvement in her pain. She mentions having a bowel movement last night from the barium used for the scan. Labs today show Hb 11.6, Hct 36.5, Na 147, K 3.4. FL small bowel follow-through shows prominent small bowel loops, delayed transit not seen in 2 hours,recommend abdominal xray to determine if contrast passes into the colon. No definite transition point, differential diagnosis continues to include ileus versus partial obstruction. Large amount of retained fecal debris within the right colon which could be contributing to the findings. Abdomen x-ray shows oral contrast now progressed into the colon, no obvious dilated small bowel loops on the present exam. Consider improving ileus rather than small bowel obstruction. Review of systems: Pertinent positives and negatives as discussed in HPI, a complete review of systems was performed and all other systems are negative. Vitals: Signs Reviewed Physical examination: General: nontoxic, no distress, appears at stated age Derm: warm, dry, intact Head: atraumatic, normocephalic, symmetric Eyes: EOMI, anicteric sclera Mouth: no lip lesion, mucus membranes moist Cardiovascular: S1 S2 reg, no murmur Lungs: CTA bilateral, no rhonchi, no rales, no accessory muscle use Abdominal: soft, non-tender to palpataion Extremities: No cyanosis, clubbing, or pedal edema. Neuro: Alert, Oriented, Gross neurological examination did not reveal any focal deficits. Psych: well appearing, appropriate affect Assessment/Plan: Patient is a 54 year old female with PMH of acid reflux, hypertension, ascending aortic aneurysm, degenerative disc disease, appendectomy, cholecystectomy presented to the ED as a transfer from [facility] for crampy abdominal pain. She has been admitted for partial small bowel obstruction. She received an enema for constipation and continues to be NPO. Small bowel follow through shows prominent small bowel loops and No definite transition point. Abdomen Xray shows no obvious dilated small bowel loops on the present exam. Active: #. Partial small bowel obstruction secondary to severe constipation from narc otic use vs ileus -S/p enema 09/28/24, had a small bowel movement -Small bowel follow through shows prominent small bowel loops, No definite transition point, differential diagnosis continues to include ileus versus partial obstruction.Large amount of retained fecal debris within the right colon. -Abdomen Xray shows oral contrast now progressed into the colon, no obvious dilated small bowel loops on the present exam. Consider improving ileus rather than small bowel obstruction. -Remain NPO -Continue MiraLAX 17 g p.o. daily, lubiprostone 24 mcg p.o. at bedtime and daily as needed and lactulose 30 gm TID PRN for constipation and GI upset -Continue Naloxegol oxalate 25 mg PO HS -Continue diazepam 5 mg p.o. at bedtime and daily as needed, cyclobenzaprine 5 mg p.o. at bedtime and daily as needed, Fioricet 1 each p.o. every 4 hours as needed, Ketorolac 15 mg IVP Q6HR PRN for pain management -Surgery is following #. Nausea and vomiting -Continue ondansetron 4 mg IVP every 8 hours as needed #. Hypokalemia -Continue Potassium chloride 10 meq PO Daily Chronic: #. Anxiety/depression -Continue Seroquel 200 mg p.o. at bedtime, nortriptyline 150 mg p.o. at bedtime, hydroxyzine 50 mg p.o. 3 times daily #. Overactive bladder -Continue Oxybutynin 10 mg p.o. at bedtime #. Hypertension -Continue nifedipine 60 mg p.o. at bedtime -Hydrochlorthiazide discontinued #. Diabetes mellitus -Continue Insulin sliding scale with ACHS blood glucose monitoring -Metformin discontinued #. Hyperlipidemia -Continue atorvastatin 40 mg p.o. at bedtime #. Migraine headache -Continue atogepant 60 mg p.o. at bedtime #. Allergic rhinitis -Continue Azelastine spray 2 sprays in each nostril at bedtime #. History of gastroesophageal reflux disease patient required multiple doses of Protonix and Pepcid daily -Continue Protonix 40 mg IVP daily -Hold home meds Pantoprazole and Pepcid F: 0.9 normal saline at 75 mL/h E: Potassium chloride 10 meq Daily N: NPO A: Ambulatory DVT prophylaxis: Heparin SQ 5000 units every 12 hours GI prophylaxis: Pantoprazole 40 mg IVP daily Objective - Vital Signs Vital signs: Vital Signs Temp 98.0 F 09/30/24 07:00 Pulse 83 09/30/24 07:00 Resp 15 09/30/24 07:00 BP 110/73 09/30/24 07:00 Pulse Ox 94 L 09/30/24 07:00 FiO2 Intake & Output 09/29/24 09/30/24 09/30/24 18:59 06:59 18:59 Intake Total 0 Output Total 3 Balance -3 Intake: Oral 0 Output: Urine 3 Other: # Voids 2 # Bowel Movements 1 - Labs CBC & Chem 7: 09/30/24 05:15 09/30/24 05:15 Labs: Abnormal Lab Results - Last 24 Hours (Table) 09/29/24 09/29/24 Range/Units 05:23 05:23 WBC 10.34 H (4.50-10.00) X 10*3/uL Hgb 11.3 L (12.0-17.0) g/dL Hct 36.7 L (37.2-50.0) % MCH 26.8 L (27.0-32.0) pg MCHC 30.8 L (32.0-37.0) g/dL Monocytes # 1.12 H (0.20-1.00) X 10*3/uL Calcium 8.6 L (8.7-10.3) mg/dL
--- NOTE | 2024-09-30 15:40 | P.PN ---
Subjective Progress Note Date: 09/30/24 SURGICAL PROGRESS NOTE CHIEF COMPLAINT: Partial small bowel obstruction HISTORY OF PRESENT ILLNESS: Patient continues to report pain across the middle abdomen. She reports she is feeling a little better today. She has had multiple bowel movements and flatus. Small bowel follow-through x-ray reports p rominent small bowel loops measuring up to 3.3 cm. Delay in transit. No definite transition point noted. There is a large amount of retained fecal debris within the right colon. Follow-up abdominal x-ray reports oral contrast now progressed into the colon. No obvious dilated small bowel loops present. Afebrile. WBC 8.18 potassium 3.4 sodium 147 PHYSICAL EXAM: VITAL SIGNS: Reviewed. GENERAL: Well-developed in no acute distress. ABDOMEN: Soft. Nondistended. mild Tenderness across mid abdomen NEUROLOGIC: Alert and oriented. Cranial nerves II through XII grossly intact. ASSESSMENT: 1. Partial small bowel obstruction improving 2. History of constipation and chronic narcotic use 3. Hypokalemia PLAN: -Advance diet to clear liquids -Encourage patient to ambulate -Continue IV fluids -Continue supportive care -Replace potassium Physician Damper Maker note has been reviewed by physician. Signing provider agrees with the documented findings, assessment, and plan of care. Objective - Vital Signs Vital signs: Vital Signs Temp 97.7 F 09/30/24 15:00 Pulse 82 09/30/24 15:00 Resp 16 09/30/24 15:00 BP 128/81 09/30/24 15:00 Pulse Ox 99 09/30/24 15:00 FiO2 Intake & Output 09/29/24 09/30/24 09/30/24 18:59 06:59 18:59 Intake Total 0 Output Total 3 Balance -3 Intake: Oral 0 Output: Urine 3 Other: # Voids 2 1 # Bowel Movements 1 - Labs CBC & Chem 7: 09/30/24 05:15 09/30/24 05:15 Labs: Abnormal Lab Results - Last 24 Hours (Table) 09/30/24 09/30/24 09/30/24 Range/Units 05:15 05:15 12:17 Hgb 11.6 L (12.0-17.0) g/dL Hct 36.5 L (37.2-50.0) % MCH 26.6 L (27.0-32.0) pg MCHC 31.8 L (32.0-37.0) g/dL MPV 9.4 L (9.5-12.2) FL Sodium 147 H (135-145) mmol/L Potassium 3.4 L (3.5-5.5) mmol/L Anion Gap 17.10 H (4.00-12.00) mmol/L BUN/Creatinine Ratio 11.67 L (12.00-20.00) Ratio POC Glucose (mg/dL) 66 L (70-110) mg/dL
[2024-09-30] MEDS: POTASSIUM CHLORIDE ER 20 MEQ TAB.ER PO STA (15:52)
[2024-09-30 17:28] LABS: Glucose,Whole Blood 121 mg/dL (70-110)
[2024-09-30 20:51] LABS: Glucose,Whole Blood 90 mg/dL (70-110)
[2024-10-01 06:21] LABS: Glucose,Whole Blood 94 mg/dL (70-110)
[2024-10-01 07:52] VITALS: TEMP 98.6
[2024-10-01 08:59] LABS: Blood Urea Nitrogen 7.9 mg/dL (9.0-27.0); Calcium 8.7 mg/dL (8.7-10.3); Carbon Dioxide 24.7 mmol/L (21.6-31.8); Chloride 111 mmol/L (96-109); Glucose 79 mg/dL (70-110); Potassium 3.6 mmol/L (3.5-5.5); Sodium 143 mmol/L (135-145)
[2024-10-01 09:31] LABS: HCT 35.2 % (37.2-50.0); HGB 11.3 g/dL (12.0-17.0); MCH 26.5 pg (27.0-32.0); MCHC 32.1 g/dL (32.0-37.0); MCV 82.4 FL (80.0-97.0); Mean Platelet Volume 9.5 FL (9.5-12.2); NRBC Per 100 WBC 0 X 10*3/uL (0.00-0.01); Platelet Count 298 X 10*3/uL (140-440); RBC 4.27 X 10*6/uL (4.10-5.60); RDW 13.6 % (11.5-14.5); WBC 9.47 X 10*3/uL (4.50-10.00)
--- NOTE | 2024-10-01 10:58 | P.PN ---
Subjective Progress Note Date: 10/01/24 Principal diagnosis: Bowel obstruction Patient feels better today. Still having loose stools. Says her pain is mostly gone. No nausea or vomiting. Tolerating liquids. White blood cell count normal. Objective - Vital Signs Vital signs: Vital Signs Temp 98.6 F 10/01/24 07:00 Pulse 83 10/01/24 07:00 Resp 14 10/01/24 07:00 BP 120/80 10/01/24 07:00 Pulse Ox 98 10/01/24 07:00 FiO2 Intake & Output 09/30/24 10/01/24 10/01/24 18:59 06:59 18:59 Intake Total 480 236 Balance 480 236 Intake: Oral 480 236 Other: # Voids 1 1 # Bowel Movements 0 - Exam Abdomen: Soft, nontender, nondistended - Labs CBC & Chem 7: 10/01/24 03:53 10/01/24 03:53 Labs: Abnormal Lab Results - Last 24 Hours (Table) 09/30/24 09/30/24 10/01/24 Range/Units 12:17 17:17 03:53 Hgb 11.3 L (12.0-17.0) g/dL Hct 35.2 L (37.2-50.0) % MCH 26.5 L (27.0-32.0) pg Chloride (96-109) mmol/L BUN (9.0-27.0) mg/dL BUN/Creatinine Ratio (12.00-20.00) Ratio POC Glucose (mg/dL) 66 L 121 H (70-110) mg/dL 10/01/24 Range/Units 03:53 Hgb (12.0-17.0) g/dL Hct (37.2-50.0) % MCH (27.0-32.0) pg Chloride 111 H (96-109) mmol/L BUN 7.9 L (9.0-27.0) mg/dL BUN/Creatinine Ratio 7.90 L (12.00-20.00) Ratio POC Glucose (mg/dL) (70-110) mg/dL Assessment and Plan (1) Partial small bowel obstruction Narrative/Plan: 51-year-old female with partial small bowel obstruction improving. Advance to full liquid diet. If tolerates may discharge on full liquids to slowly advance diet after discharge. Patient instructed to return to the hospital if she has any recurrent symptoms of pain, vomiting, distention, obstipation. Current Visit: Yes Status: Acute Code(s): K56.600 - PARTIAL INTESTINAL OBSTRUCTION, UNSPECIFIED TO CAUSE SNOMED Code(s): 405959486
[2024-10-01 12:46] LABS: Glucose,Whole Blood 85 mg/dL (70-110)
[2024-10-01 14:29] VITALS: BP 110/72; PULSE 89; RESP 15
--- NOTE | 2024-10-01 16:35 | P.DS ---
Providers Date of admission: 09/27/24 15:46 Expected date of discharge: 10/01/24 Attending physician: Yuniel Scott MD Consults: 09/27/24 15:45 Consult Physician Urgent Consulting Provider: Fan Wooten Consult Reason/Comments: Partial small bowel obstruction Do you want consulting provider notified?: Yes Primary care physician: Zak [facility]admin[facility] Course: Discharge diagnosis: Partial small bowel obstruction secondary to severe constipation from narcotic use vs ileus Nausea and vomiting Hypokalemia Anxiety/depression Overactive bladder Hypertension Diabetes mellitus Hyperlipidemia Migraine headache Allergic rhinitis History of gastroesophageal reflux disease patient required multiple doses of Protonix and Pepcid daily Hospital Course: Patient is a 54 year old female with PMH of acid reflux, hypertension, ascending aortic aneurysm, degenerative disc disease, appendectomy, cholecystectomy presented to the ED as a transfer from [facility] for crampy abdominal pain. Was sent down from [facility] with concern for a partial small bowel obstruction. Patient states that she has not had a bowel movement for couple days and ended up vomiting for over 14 hours. Started Sunday night. Patient had crampy abdominal pain. She takes Percocet tens at home 2-3 times per day states that she does have issues with frequent bouts of constipation requiring manual disimpaction. She is not having any fever or chills. No shortness of breath or chest pain. She does feel like her abdomen pain is also sore from the vomiting. She states that the vomit itself was yellow however she did have some frothy mckeon emesis as well. She has been having significant acid reflux symptoms with burning sensation she has been taking 80 mg of Protonix a day as well as up to 3 to 4 tablets of Pepcid. Patient was started on normal saline and bowel rest n.p.o. diet with general surgery consultation. She is evaluated today she is passing gas she is having positive bowel sounds in all 4 quadrants there is no abdominal distention noted. 09/29/24: Patient seen and examined at bedside today. She still complains of abdominal pain. She mentions passing flatus but has not had a bowel movement. She reports having chronic constipation for several years and does notice some blood with her bowel movements when she attempts manual disimpaction. Labs today show WBC 10.34, hemoglobin 11.90, hematocrit 36.7, sodium 141, potassium 3.5, magnesium 1.7. Abdomen x-ray shows nonspecific bowel gas pattern with distal small bowel obstruction difficult to exclude. 09/30/24: Patient evaluated today. No acute events overnight. She complains of abdominal pain that is 5/10 severity and notes a slight improvement in her pain. She mentions having a bowel movement last night from the barium used for the scan. Labs today show Hb 11.6, Hct 36.5, Na 147, K 3.4. FL small bowel follow- through shows prominent small bowel loops, delayed transit not seen in 2 hours,recommend abdominal xray to determine if contrast passes into the colon. No definite transition point, differential diagnosis continues to include ileus versus partial obstruction. Large amount of retained fecal debris within the right colon which could be contributing to the findings. Abdomen x-ray shows oral contrast now progressed into the colon, no obvious dilated small bowel loops on the present exam. Consider improving ileus rather than small bowel obstruction. 10/01/24: Patient examined at bedside. Hemodynamically stable. Labs today show hemoglobin 11.3, sodium 143, potassium 3.6. Patient seen at bedside today and is feeling good and excited about discharge. Discharge on full liquids to slowly advance diet after discharge. Patient instructed to return to the hospital if she has any recurrent symptoms of pain, vomiting, distention, obstipation. Patient will be discharged today and is given a script for MiraLAX Patient is advised to be compliant with medications. Patient is advised to follow-up with PCP in 1-2 days, general surgery in 1 week. Vital signs are reviewed and stable General: nontoxic, no distress, appears at stated age Derm: warm, dry, intact Head: atraumatic, normocephalic, symmetric Eyes: EOMI, anicteric sclera Mouth: no lip lesion, mucus membranes moist Cardiovascular: S1 S2 reg, no murmur Lungs: CTA bilateral, no rhonchi, no rales, no accessory muscle use Abdominal: soft, non-tender to palpataion Extremities: No cyanosis, clubbing, or pedal edema. Neuro: Alert, Oriented, Gross neurological examination did not reveal any focal deficits. Psych: well appearing, appropriate affect A total of 30 minutes of time were spent preparing this complex discharge summary. Patient was discharged on 10/01/24 at 1640. Patient Condition at Discharge: Stable Plan - Discharge Summary New Discharge Prescriptions: New polyethylene glycoL 3350 [Miralax] 17 gm PO DAILY 14 Days #14 packet Continue Orphenadrine [Norflex] 100 mg PO DAILY PRN PRN Reason: Pain Lubiprostone [Amitiza] 24 mcg PO HS Nortriptyline HCl [Pamelor] 150 mg PO HS Potassium Chloride ER [K-Dur 10] 10 meq PO DAILY Naloxegol Oxalate [Movantik] 25 mg PO HS hydroCHLOROthiazide [Hydrodiuril] 25 mg PO HS Oxybutynin ER [Ditropan XL] 10 mg PO HS NIFEdipine XL [Procardia XL] 60 mg PO HS Famotidine 40 mg PO HS ondansetron HCL [Zofran] 8 mg PO TID PRN PRN Reason: Nausea Butalb/APAP/Caff 50-325-40Mg [Fioricet 50-325-40] 1 tab PO Q4H PRN PRN Reason: Migraine Headache Azelastine HCl [Astelin Nasal Darwin] 2 spr EA NOSTRIL HS Atorvastatin [Lipitor] 40 mg PO HS Ketorolac [Toradol] 10 mg PO BID PRN PRN Reason: back pain QUEtiapine [SEROquel] 200 mg PO HS Atogepant [Qulipta] 60 mg PO HS Pantoprazole [Protonix] 40 mg PO HS Lubiprostone [Amitiza] 24 mcg PO DAILY PRN PRN Reason: Gi Upset Ergocalciferol [Vitamin D2 (1250 Mcg = 55733 Iu)] 1,250 mcg PO ARBOLEDA metFORMIN HCL [Glucophage] 1,000 mg PO HS Triamcinolone 0.1% Cream [Kenalog 0.1% Cream] 1 applic TOPICAL BID PRN PRN Reason: Itching hydrOXYzine HCL [Atarax] 50 mg PO TID Famotidine 40 mg PO DAILY PRN PRN Reason: Heartburn polyethylene glycoL 3350 [Miralax] 17 gm PO DAILY diazePAM [Valium] 5 mg PO DAILY PRN PRN Reason: Pain diazePAM [Valium] 5 mg PO HS Orphenadrine [Norflex] 100 mg PO HS Discontinued oxyCODONE-APAP 10-325MG [Percocet 10-325 mg] 1 tab PO HS Discharge Medication List Orphenadrine [Norflex] 100 mg PO DAILY PRN 07/07/21 [History] Pantoprazole [Protonix] 40 mg PO HS 07/14/21 [History] Atogepant [Qulipta] 60 mg PO HS 09/27/24 [History] Atorvastatin [Lipitor] 40 mg PO HS 09/27/24 [History] Azelastine HCl [Astelin Nasal Darwin] 2 spr EA NOSTRIL HS 09/27/24 [History] Butalb/APAP/Caff 50-325-40Mg [Fioricet 50-325-40] 1 tab PO Q4H PRN 09/27/24 [History] Ergocalciferol [Vitamin D2 (1250 Mcg = 08028 Iu)] 1,250 mcg PO ARBOLEDA 09/27/24 [History] Famotidine 40 mg PO DAILY PRN 09/27/24 [History] Famotidine 40 mg PO HS 09/27/24 [History] Ketorolac [Toradol] 10 mg PO BID PRN 09/27/24 [History] Lubiprostone [Amitiza] 24 mcg PO DAILY PRN 09/27/24 [History] Lubiprostone [Amitiza] 24 mcg PO HS 09/27/24 [History] NIFEdipine XL [Procardia XL] 60 mg PO HS 09/27/24 [History] Naloxegol Oxalate [Movantik] 25 mg PO HS 09/27/24 [History] Nortriptyline HCl [Pamelor] 150 mg PO HS 09/27/24 [History] Orphenadrine [Norflex] 100 mg PO HS 09/27/24 [History] Oxybutynin ER [Ditropan XL] 10 mg PO HS 09/27/24 [History] Potassium Chloride ER [K-Dur 10] 10 meq PO DAILY 09/27/24 [History] QUEtiapine [SEROquel] 200 mg PO HS 09/27/24 [History] Triamcinolone 0.1% Cream [Kenalog 0.1% Cream] 1 applic TOPICAL BID PRN 09/27/24 [History] diazePAM [Valium] 5 mg PO DAILY PRN 09/27/24 [History] diazePAM [Valium] 5 mg PO HS 09/27/24 [History] hydrOXYzine HCL [Atarax] 50 mg PO TID 09/27/24 [History] hydroCHLOROthiazide [Hydrodiuril] 25 mg PO HS 09/27/24 [History] metFORMIN HCL [Glucophage] 1,000 mg PO HS 09/27/24 [History] ondansetron HCL [Zofran] 8 mg PO TID PRN 09/27/24 [History] polyethylene glycoL 3350 [Miralax] 17 gm PO DAILY 09/27/24 [History] polyethylene glycoL 3350 [Miralax] 17 gm PO DAILY 14 Days #14 packet 10/01/24 [Rx] Follow up Appointment(s)/Referral(s): Vilma Shrestha PAC [[employer]] - 1 Week Zak Washington MD [Primary Care Provider] - 1-2 days Activity/Diet/Wound Care/Special Instructions: [facility] (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 Closes 8?PM [employer] Instructional Technology Specialist 1 year in [employer] [facility] [employer] ? Closes 6?PM [employer] Instructional Technology Specialist 1 year in [employer] [facility] [employer] 24 hours [employer] 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 Closes 6?PM Discharge Disposition: HOME SELF-CARE
== END 2024-10-01 16:46 | disposition home or self-care (01) | DRG 392 ==
LOC: EC 14:40 → OBSVTOIN 15:46 → 6NMEDSUR 15:46
PROVIDERS: ADMIT Internal Medicine; ATTEND Internal Medicine
DX: K59.03 Drug induced constipation (principal); K56.690 Other partial intestinal obstruction; I10 Essential (primary) hypertension; E11.9 Type 2 diabetes mellitus without complications; F32.A Depression, unspecified; T40.605A Adverse effect of unspecified narcotics, initial encounter; K21.9 Gastro-esophageal reflux disease without esophagitis; F41.9 Anxiety disorder, unspecified; G89.29 Other chronic pain; E87.6 Hypokalemia; N32.81 Overactive bladder; J30.9 Allergic rhinitis, unspecified; E78.5 Hyperlipidemia, unspecified; G43.909 Migraine, unspecified, not intractable, without status migrainosus; Z79.891 Long term (current) use of opiate analgesic; Z79.84 Long term (current) use of oral hypoglycemic drugs; Z90.49 Acquired absence of other specified parts of digestive tract; Z79.899 Other long term (current) drug therapy; Z85.828 Personal history of other malignant neoplasm of skin
CPT/HCPCS: 74019; 74250; 80048; 83036; 83735; 85025; 85027; 96361; 96374; 96375; 99285

== ENCOUNTER → 2025-01-20 | Outpatient (CLI) | payer OTHER ==
--- NOTE | 2025-01-21 08:19 | MR ---
EXAMINATION TYPE: MR brain wo/w con DATE OF EXAM: 01/20/2025 10:09 PM COMPARISON: None. CLINICAL INDICATION: Female, 54 years old with history of R55, M54.16, Syncope, AMS, TECHNIQUE: Multi planar multi sequence imaging of the brain. FINDINGS: The ventricles, basal cisterns and sulci overlying the cerebral convexities are mildly enlarged. There is evidence of mild periventricular white matter ischemic demyelination. Remote deep white matter insults are also noted. No acute edema is seen on diffusion weighted imaging. There is no evidence for midline shift or mass effect. Acute intracranial hemorrhage or extra-axial collection is not evident. The paranasal sinuses are well-aerated. Again noted are changes of chronic mastoiditis. IMPRESSION: Age-related atrophic and chronic small vessel ischemic change. No acute intracranial process at this time. [facility], , 01/21/2025 8:17 AM
--- NOTE | 2025-01-22 07:57 | MR ---
EXAMINATION TYPE: MR lumbar spine wo con DATE OF EXAM: 01/20/2025 9:52 PM COMPARISON: 04/18/2018 CLINICAL INDICATION: Female, 54 years old with history of R55, M54.16, IV Contrast: cc (None if empty) TECHNIQUE: Multiplanar, multisequence images of the lumbar spine were acquired without IV contrast. L1-L2: Interval moderate disc desiccation and posterior disc bulge. Effacement of ventral thecal sac without evidence for central stenosis or disc herniation. Bilateral foraminal encroachment noted mild in degree. L2-L3: Normal disc appearance without desiccation. No herniation, protrusion or disc bulging. No ca nal stenosis is present. Foramina are patent bilaterally. L3-L4: Mild disc desiccation and mild posterior disc bulge. No herniation or central stenosis. Forami na appear to be patent bilaterally. L4-L5: Mild to moderate disc desiccation with posterior disc bulge. Grade 1 anterolisthesis of L4 on L5 measuring 2 mm related to facet joint arthropathy. Posterior disc bulge with mild effacement of ve ntral thecal sac. There is no evidence for central stenosis or francisco javier disc herniation. Mild to moderat e bilateral foraminal encroachment. L5-S1: Mild disc desiccation noted. No herniation, protrusion or disc bulging. No canal stenosis is present. Foramina are patent bilaterally. Lumbar segments are intact. No paraspinal masses are identified. Conus medullaris has a normal appe arance. IMPRESSION: 1. Multilevel degenerative disc disease progressive since prior study. 2. Varying degrees of disc bulging and foraminal encroachment without central stenosis. [facility], , 01/22/2025 7:55 AM
== END | disposition home or self-care (01) ==
LOC: RADMRIMAIN 20:45
PROVIDERS: ATTEND Surgery
DX: M51.16 Intervertebral disc disorders with radiculopathy, lumbar region (principal); R41.82 Altered mental status, unspecified; R55 Syncope and collapse; M48.062 Spinal stenosis, lumbar region with neurogenic claudication; M47.896 Other spondylosis, lumbar region; G31.1 Senile degeneration of brain, not elsewhere classified; I67.82 Cerebral ischemia; M99.73 Connective tissue and disc stenosis of intervertebral foramina of lumbar region
CPT/HCPCS: 70553; 72148; A9585